=== PATIENT | female | born 1975 | race Caucasian/White ===

== ENCOUNTER 2016-06-11 14:43 | Emergency (ER) | payer BC, OTHER ==
[2016-06-11] MEDS ORDERED: IPRATROPIUM-ALBUTEROL 3 ML NEB INHALATION STA (15:51)
[2016-06-11] MEDS ORDERED: SODIUM CHLORIDE 0.9% 1,000 ML IV STA (15:51)
[2016-06-11] MEDS ORDERED: methylPREDNISolone SOD SUCCI 125 MG/2 ML VIAL IV STA (15:51)
--- NOTE | 2016-06-11 15:55 | ED ---
General Adult HPI - General Chief complaint: Upper Respiratory Infection Stated complaint: SOB/Cough Time Seen by Provider: 06/11/16 15:15 Source: patient, RN notes reviewed Mode of arrival: ambulatory Limitations: no limitations - History of Present Illness Initial comments: 41-year-old female presents emergency 5 chief complaint of cough and shortness of breath. Patient has a history of respiratory distress in the past following surgery. Patient states that anytime she gets sick she is informed to come to the ER. Patient states she started getting sick on . Patient states she's now having wheezing and increased shortness of breath. Patient denies any fever chills with this. Patient denies any cough cold runny nose. Patient states she was concerned due to her continued symptoms so she thought that she should be evaluated. Patient denies any recent fever, chills, chest pain, back pain, abdominal pain, nausea vomiting, numbness or tingling, dysuria or hematuria, constipation or diarrhea, headaches or visual changes, or any other current symptoms. - Related Data Home Medications Medication Instructions Recorded Confirmed Acetaminophen Tab [Tylenol Tab] 650 mg PO Q6H PRN 06/11/16 06/11/16 Phenylephrine/Acetamin/Doxylam 1 cap PO Q6HR PRN 06/11/16 06/11/16 [Vicks Dayquil-Nyquil Sinex Cap] Previous Rx's Medication Instructions Recorded Albuterol Inhaler [Ventolin Hfa 1 - 2 puff INHALATION Q4-6H PRN #1 06/11/16 Inhaler] inhaler Albuterol Nebulized [Ventolin 2.5 mg INHALATION Q4H #20 nebu 06/11/16 Nebulized] Amoxicillin/Potassium Clav 1 tab PO Q12HR #20 tab 06/11/16 [Augmentin 875-125 Tablet] Furosemide [Lasix] 20 mg PO DAILY #2 tab 06/11/16 predniSONE 50 mg PO DAILY #5 tab 06/11/16 Allergies Allergy/AdvReac Type Severity Reaction Status Date / Time latex Allergy Unknown Verified 06/11/16 15:27 aloe vera AdvReac Rash/Hives Verified 06/11/16 15:27 Review of Systems ROS Statement: Those systems with pertinent positive or pertinent negative responses have been documented in the HPI. ROS Other: All systems not noted in ROS Statement are negative. Past Medical History Past Medical History: Respiratory Disorder Additional Past Medical History / Comment(s): TACHYCARDIA. WAS ON VENT X 1 1/2 MOS. R/T UNKNOWN LUNG CONDITION, STATES ALVEOLI HEMORRHAGE. ACUTE RESP. FAILURE. WAS ON DIALYSIS X 2 MOS. History of Any Multi-Drug Resistant Organisms: C-DIFF, MRSA Date of last positivie culture/infection: 2012 MDRO Source:: HOSPITAL ACQUIRED/ UTI Past Surgical History: Uterine Ablation Additional Past Surgical History / Comment(s): D & C, ENDOMET. ABLATION. RIGHT FOOT ORIF Past Anesthesia/Blood Transfusion Reactions: No Reported Reaction Past Psychological History: Anxiety Smoking Status: Former smoker Past Alcohol Use History: Rare Past Drug Use History: None Reported General Exam - General Exam Comments Initial Comments: General: The patient is awake and alert, in no distress, and does not appear acutely ill. Eye: Pupils are equal, round and reactive to light, extra-ocular movements are intact; there is normal conjunctiva bilaterally. No signs of icterus. Ears, nose, mouth and throat: There are moist mucous membranes and no oral lesions. Neck: The neck is supple, there is no tenderness. Cardiovascular: There is a regular rate and rhythm. No murmur, rub or gallop is appreciated. Respiratory: Lungs are clear to auscultation, respirations are non-labored, breath sounds are equal. Expiratory wheeze, no stridor, rales, or rhonchi. Gastrointestinal: Soft, non-distended, non-tender abdomen without masses or organomegaly noted. There is no rebound or guarding present. No CVA tenderness. Bowel sounds are unremarkable. Back: There is no tenderness to palpation in the midline. There is no obvious deformity. No rashes noted. Musculoskeletal: Normal ROM, no tenderness, There is no pedal edema. There is no calf tenderness or swelling. Sensation intact. Pulses equal bilaterally 2+. Neurological: CN II-XII intact, There are no obvious motor or sensory deficits. Coordination appears grossly intact. Speech is normal. Skin: Skin is warm and dry and no rashes or lesions are noted. Psychiatric: Cooperative, appropriate mood & affect, normal judgment. Limitations: no limitations Course Vital Signs 06/11/16 06/11/16 06/11/16 14:53 16:09 16:12 Temperature 98.5 F Pulse Rate 102 H 100 93 Respiratory 20 18 Rate Blood Pressure 131/77 145/83 O2 Sat by Pulse 96 98 Oximetry 06/11/16 16:20 Temperature Pulse Rate 100 Respiratory Rate Blood Pressure O2 Sat by Pulse Oximetry - Reevaluation(s) Reevaluation #1: 06/11/16 17:37 At this time patient reevaluated and wheezing has improved. Patient states that she is feeling much better. On room air patient is around 9596% while in the room. This time we didn't say we could keep her here for continued evaluation and observation admission however she states she is ALLERGIC to home. She states that if she does start to feel where she will return to the emergency department. Medical Decision Making - Medical Decision Making 41-year-old female presents with cough and shortness of breath. Chest x-ray does show concern for possible pulmonary edema. Patient's BMP is negative. More likely to be due to viral-like causes will however start the patient on Lasix for 2 days to see if that helps also improve her symptoms along with steroids and antibiotics. We did discuss with her breathing treatment and inhaler for home. This patient is in agreement with plan and all questions have been answered. This will be discharged. - Lab Data Result diagrams: 06/11/16 16:15 06/11/16 16:15 Lab Results 06/11/16 06/11/16 06/11/16 Range/Units 16:00 16:15 16:15 WBC 8.4 (3.8-10.6) k/uL RBC 5.33 (3.80-5.40) m/uL Hgb 16.3 H (11.4-16.0) gm/dL Hct 51.1 H (34.0-46.0) % MCV 95.9 (80.0-100.0) fL MCH 30.5 (25.0-35.0) pg MCHC 31.8 (31.0-37.0) g/dL RDW 13.5 (11.5-15.5) % Plt Count 230 (150-450) k/uL Neutrophils % (Manual) 57.0 % Lymphocytes % (Manual) 22.0 % Monocytes % (Manual) 15.0 % Eosinophils % (Manual) 6.0 % Neutrophils # (Manual) 4.8 (1.3-7.7) k/uL Lymphocytes # (Manual) 1.8 (1.0-4.8) k/uL Monocytes # (Manual) 1.3 H (0-1.0) k/uL Eosinophils # (Manual) 0.5 (0-0.7) k/uL Nucleated RBCs 0 (0-0) /100 WBC Manual Slide Review Performed RBC Morphology Normal Sodium 135 L (137-145) mmol/L Potassium 4.6 (3.5-5.1) mmol/L Chloride 105 (98-107) mmol/L Carbon Dioxide 23 (22-30) mmol/L Anion Gap 7 mmol/L BUN 17 (7-17) mg/dL Creatinine 1.38 H (0.52-1.04) mg/dL Est GFR (MDRD) Af Amer 51 (>60 ml/min/1.73 sqM) Est GFR (MDRD) Non-Af 42 (>60 ml/min/1.73 sqM) Glucose 123 H (74-99) mg/dL Plasma Lactic Acid Luis Antonio (0.7-2.0) mmol/L Calcium 9.1 (8.4-10.2) mg/dL Total Bilirubin 0.6 (0.2-1.3) mg/dL AST 45 H (14-36) U/L ALT 62 H (9-52) U/L Alkaline Phosphatase 56 (38-126) U/L NT-Pro-B Natriuret Pep 20 pg/mL Total Protein 7.1 (6.3-8.2) g/dL Albumin 4.0 (3.5-5.0) g/dL 06/11/16 Range/Units 16:15 WBC (3.8-10.6) k/uL RBC (3.80-5.40) m/uL Hgb (11.4-16.0) gm/dL Hct (34.0-46.0) % MCV (80.0-100.0) fL MCH (25.0-35.0) pg MCHC (31.0-37.0) g/dL RDW (11.5-15.5) % Plt Count (150-450) k/uL Neutrophils % (Manual) % Lymphocytes % (Manual) % Monocytes % (Manual) % Eosinophils % (Manual) % Neutrophils # (Manual) (1.3-7.7) k/uL Lymphocytes # (Manual) (1.0-4.8) k/uL Monocytes # (Manual) (0-1.0) k/uL Eosinophils # (Manual) (0-0.7) k/uL Nucleated RBCs (0-0) /100 WBC Manual Slide Review RBC Morphology Sodium (137-145) mmol/L Potassium (3.5-5.1) mmol/L Chloride (98-107) mmol/L Carbon Dioxide (22-30) mmol/L Anion Gap mmol/L BUN (7-17) mg/dL Creatinine (0.52-1.04) mg/dL Est GFR (MDRD) Af Amer (>60 ml/min/1.73 sqM) Est GFR (MDRD) Non-Af (>60 ml/min/1.73 sqM) Glucose (74-99) mg/dL Plasma Lactic Acid Luis Antonio 1.5 (0.7-2.0) mmol/L Calcium (8.4-10.2) mg/dL Total Bilirubin (0.2-1.3) mg/dL AST (14-36) U/L ALT (9-52) U/L Alkaline Phosphatase (38-126) U/L NT-Pro-B Natriuret Pep pg/mL Total Protein (6.3-8.2) g/dL Albumin (3.5-5.0) g/dL - Radiology Data Radiology results: report reviewed, image reviewed Disposition Clinical Impression: Acute bronchitis, Pulmonary edema Disposition: HOME SELF-CARE Condition: Stable Instructions: Acute Bronchitis (ED) Additional Instructions: Please use medication as discussed. Please follow up with family doctor if symptoms have not improved over the next two days. Please return to the emergency room if your symptoms increase or worsen or for any other concerns. Prescriptions: Albuterol Inhaler [Ventolin Hfa Inhaler] 1 - 2 puff INHALATION Q4-6H PRN #1 inhaler PRN Reason: Cough Albuterol Nebulized [Ventolin Nebulized] 2.5 mg INHALATION Q4H #20 nebu Amoxicillin/Potassium Clav [Augmentin 875-125 Tablet] 1 tab PO Q12HR #20 tab Furosemide [Lasix] 20 mg PO DAILY #2 tab predniSONE 50 mg PO DAILY #5 tab Referrals: Jose So DO [Primary Care Provider] - 1-2 days
[2016-06-11 16:15] VITALS: RESP 18
--- NOTE | 2016-06-11 16:29 | XR ---
EXAMINATION TYPE: XR chest 2V DATE OF EXAM: 06/11/2016 4:24 PM COMPARISON: NONE INDICATION: Cough, dyspnea TECHNIQUE: Single frontal view of the chest is obtained. FINDINGS: The heart size is normal. The pulmonary vasculature is indistinct. There is diffuse increased alveolar infiltrate. This is improved from prior study. The patient has be en extubated and the nasogastric tube removed. IMPRESSION: 1. Improving pulmonary edema. Continued follow-up for residual is recommended.
[2016-06-11 16:33] LABS: Aty Lym Flag Slight; CH 31.6; CHCM 33.1; HCT 51.1 % (34.0-46.0); HDW 2.34; HGB 16.3 gm/dL (11.4-16.0); MCH 30.5 pg (25.0-35.0); MCHC 31.8 g/dL (31.0-37.0); MCV 95.9 fL (80.0-100.0); Mean Platelet Volume 7.3; RBC 5.33 m/uL (3.80-5.40); RDW 13.5 % (11.5-15.5); WBC 8.4 k/uL (3.8-10.6); WBC (Perox) 8.13
[2016-06-11 16:36] LABS: Calcium 9.1 mg/dL (8.4-10.2); Potassium 4.6 mmol/L (3.5-5.1); Total Bilirubin 0.6 mg/dL (0.2-1.3); Total Protein 7.1 g/dL (6.3-8.2)
[2016-06-11 16:38] LABS: Add Differential Manual Differential
[2016-06-11 16:45] LABS: Manual Review Performed; Nucleated Red Blood Cells 0 /100 WBC (0-0); RBC Morphology Normal; Total Cells Counted 100
[2016-06-11] MEDS ORDERED: ALBUTEROL NEBULIZED 2.5 MG/3 ML INHALATION STA (17:37)
[2016-06-11] MEDS ORDERED: FUROSEMIDE 20 MG TAB PO STA (17:40)
[2016-06-11 19:34] VITALS: BP 130/71; PULSE 110; TEMP 98.8
== END 2016-06-11 19:40 | disposition home or self-care (01) ==
LOC: EC 14:43
DX: J81.1 Chronic pulmonary edema (principal); J20.9 Acute bronchitis, unspecified; Z86.14 Personal history of Methicillin resistant Staphylococcus aureus infection; Z91.040 Latex allergy status; Z91.048 Other nonmedicinal substance allergy status
CPT/HCPCS: 99284; 96374; 96361; 36415; 94640 ×2; 83880; 80053; 83605; 85025; 87040; 71020; J2930; J0696

== ENCOUNTER 2016-07-22 01:50 | Emergency (ER) | payer OTHER ==
[2016-07-22] MEDS ORDERED: PROPARACAINE 0.5% OPHTH DROPS 15 ML BTL RIGHT EYE STA (03:03)
[2016-07-22] MEDS ORDERED: PROPARACAINE 0.5% OPHTH DROPS 15 ML BTL LEFT EYE STA (03:03)
[2016-07-22] MEDS ORDERED: PROPARACAINE 0.5% OPHTH DROPS 15 ML BTL ONE (03:07)
[2016-07-22] MEDS ORDERED: predniSONE 20 MG TAB PO STA (03:21)
--- NOTE | 2016-07-22 03:22 | ED ---
Eye Problem HPI - General Chief complaint: Eye Problems Stated complaint: Eye problem Time Seen by Provider: 07/22/16 02:53 Source: patient, RN notes reviewed Mode of arrival: ambulatory Limitations: no limitations - History of Present Illness Initial comments: patient is a 41-year-old female presents emergency room for evaluation of left eye redness and irritation. Patient states that she is a mild ALLERGY to cats. Patient states that she was holding her cat today and her left eye became itchy and irritated. Patient states she went to go scratch her eye became swollen and red. Patient states her eyes have becomes red in the past due to irritation from her cat. Patient states took a Benadryl and she is still having some swelling and erythema of her left eye. Patient states she's not sure she got a cat hair in her eye. Patient states she's having increased tearing in her left eye. Patient states she did try to irrigate her eye with eye drops with no relief of symptoms. Patient denies changes in vision. - Related Data Previous Rx's Medication Instructions Recorded Albuterol Inhaler [Ventolin Hfa 1 - 2 puff INHALATION Q4-6H PRN #1 06/11/16 Inhaler] inhaler Albuterol Nebulized [Ventolin 2.5 mg INHALATION Q4H #20 nebu 06/11/16 Nebulized] Allergies Allergy/AdvReac Type Severity Reaction Status Date / Time latex Allergy Unknown Verified 06/11/16 15:27 aloe vera AdvReac Rash/Hives Verified 06/11/16 15:27 Review of Systems ROS Statement: Those systems with pertinent positive or pertinent negative responses have been documented in the HPI. ROS Other: All systems not noted in ROS Statement are negative. Past Medical History Past Medical History: Respiratory Disorder Additional Past Medical History / Comment(s): TACHYCARDIA. WAS ON VENT X 1 1/2 MOS. R/T UNKNOWN LUNG CONDITION, STATES ALVEOLI HEMORRHAGE. ACUTE RESP. FAILURE. WAS ON DIALYSIS X 2 MOS. History of Any Multi-Drug Resistant Organisms: C-DIFF, MRSA Date of last positivie culture/infection: 2012 MDRO Source:: HOSPITAL ACQUIRED/ UTI Past Surgical History: Uterine Ablation Additional Past Surgical History / Comment(s): D & C, ENDOMET. ABLATION. RIGHT FOOT ORIF Past Anesthesia/Blood Transfusion Reactions: No Reported Reaction Past Psychological History: Anxiety Smoking Status: Former smoker Past Alcohol Use History: Rare Past Drug Use History: None Reported General Exam - General Exam Comments Initial Comments: sitting in exam room, no acute distress. Limitations: no limitations General appearance: alert, in no apparent distress Head exam: Present: atraumatic, normocephalic, normal inspection Expanded Eyelids: Swelling: Left Pupils: Regular, Round: Bilateral, Reactive: Bilateral Sclera/Conjunctival: Injection: Left ENT exam: Present: normal exam Neck exam: Present: normal inspection Respiratory exam: Absent: respiratory distress Extremities exam: Present: normal inspection Back exam: Present: normal inspection Neurological exam: Present: alert, oriented X3, CN II-XII intact, normal gait Psychiatric exam: Present: normal affect, normal mood Skin exam: Present: warm, dry, intact, normal color. Absent: rash Course Vital Signs 07/22/16 02:17 Temperature 98.6 F Pulse Rate 89 Respiratory 18 Rate Blood Pressure 173/94 O2 Sat by Pulse 97 Oximetry Medical Decision Making - Medical Decision Making patient is a 41-year-old female presents to the emergency room for evaluation left eye irritation. Patient's left eye was anesthetized with proparacaine drops and evaluated under Wood's lamp with fluorescein dye. No uptake noted. Does appear that patient had an ALLERGIC reaction from a piece of cat hair. Patient given prednisone advised to continue taking Benadryl as needed. Patient states she understands everything that was discussed with her. Return parameters discussed. Case discussed with Dr. Clayton. Disposition Clinical Impression: Allergic conjunctivitis Disposition: HOME SELF-CARE Condition: Good Instructions: Allergies (ED) Additional Instructions: Continue taking Benadryl as needed. Cold compresses. Please follow up with primary care provider in 1-2 days. If any new symptom arises or symptoms worsen , return to ER as soon as possible. Referrals: Jose So DO [Primary Care Provider] - 1-2 days Time of Disposition: 03:21
[2016-07-22 03:45] VITALS: BP 168/77; PULSE 84; RESP 20; TEMP 97.8
== END 2016-07-22 03:45 | disposition home or self-care (01) ==
LOC: EC 01:50
DX: H10.12 Acute atopic conjunctivitis, left eye (principal); Z87.891 Personal history of nicotine dependence; Z91.040 Latex allergy status; Z91.048 Other nonmedicinal substance allergy status
CPT/HCPCS: 99283; J7512

== ENCOUNTER → 2016-07-27 | Outpatient (CLI) | payer OTHER ==
--- NOTE | 2016-07-28 08:37 | US ---
EXAMINATION TYPE: US kidneys/renal and bladder DATE OF EXAM: 07/27/2016 4:13 PM COMPARISON: NONE CLINICAL HISTORY: 41-year-old female N17.9 Renal Failure. No symptoms, chronic kidney disease. TECHNIQUE: Multiple sonographic images of the kidneys and bladder were obtained. FINDINGS: DIE MAKER ELECTRONIC NOTES: *large body habitus EXAM MEASUREMENTS: Right Kidney: 9.8 x 3.9 x 4.0 cm Left Kidney: 10.1 x 4.4 x 4.8 cm There is no hydronephrosis on either side. No gross abnormality of the urine distended bladder. Both ureteral jets are visualized. IMPRESSION: No hydronephrosis.
== END | disposition home or self-care (01) ==
LOC: RADUSWWP 15:39
PROVIDERS: ATTEND Family Medicine
DX: N17.9 Acute kidney failure, unspecified (principal)
CPT/HCPCS: 76770

== ENCOUNTER → 2016-08-07 | Outpatient (CLI) | payer OTHER ==
--- NOTE | 2016-08-07 15:39 | CT ---
EXAMINATION TYPE: CT chest wo con DATE OF EXAM: 08/07/2016 COMPARISON: Previous study dated 02/16/2013 HISTORY: Pulmonary disease CT DLP: 561.8 mGycm Automated exposure control for dose reduction was used. FINDINGS: There are emphysematous changes throughout the lungs. There are increased interstitial johnna ings throughout the lungs. No definite parenchymal nodules are seen. No alveolar airspace disease is seen. There is no significant axillary, internal mammary, mediastinal or hilar adenopathy. There is no pleu ral fluid. There is a 9 mm pericardial effusion. The heart is not enlarged. Visualized intra-abdominal structures are unremarkable. IMPRESSION: 1. COPD. 2. DIFFUSE, SUBTLE INTERSTITIAL DISEASE. 3. SMALL PERICARDIAL EFFUSION.
--- NOTE | 2016-08-08 11:07 | ECHOF ---
Referral Reason:I27.0 Primary pulmonary hypertension MEASUREMENTS -------- HEIGHT: 152.4 cm WEIGHT: 103.9 kg BP: RVIDd: 2.3 cm (< 3.3) IVSd: 1.2 cm (0.6 - 1.1) LVIDd: 3.6 cm (3.9 - 5.3) LVPWd: 1.3 cm (0.6 - 1.1) IVSs: 1.3 cm LVIDs: 2.2 cm LVPWs: 1.7 cm Ao Diam: 2.7 cm (2.0 - 3.7) AV Cusp: 1.9 cm (1.5 - 2.6) LA Diam: 2.6 cm (2.7 - 3.8) MV EXCURSION: 12.039 mm (> 18.000) MV EF SLOPE: 128 mm/s (70 - 150) EPSS: 0.2 cm MV E Yash: 0.88 m/s MV DecT: 243 ms MV A Yash: 0.77 m/s MV E/A Ratio: 1.15 RAP: 5.00 mmHg RVSP: 9.27 mmHg FINDINGS -------- Sinus rhythm. This was a technically adequate study. There is mild concentric left ventricular hypertrophy. Overall left ventricular systolic function is normal with, an EF between 55 - 60 %. The right ventricle is normal in size and function. The left atrium is normal in size. The right atrium is normal in size. The aortic valve is trileaflet, and appears structurally normal. No aortic stenosis or regurgitation. The mitral valve leaflets are mildly thickened. There is trace mitral regurgitation. Trace tricuspid regurgitation present. The right ventricular systolic pressure, as measured by Doppler, is 9.27mmHg. The pulmonic valve was not well visualized. The aortic root size is normal. The pericardium is normal. CONCLUSIONS -------- 1. Sinus rhythm. 2. There is trace mitral regurgitation. 3. Trace tricuspid regurgitation present. 4. The right ventricular systolic pressure, as measured by Doppler, is 9.27mmHg. 5. The pulmonic valve was not well visualized. 6. The aortic root size is normal. 7. The pericardium is normal. 8. This was a technically adequate study. 9. There is mild concentric left ventricular hypertrophy. 10. Overall left ventricular systolic function is normal with, an EF between 55 - 60 %. 11. The right ventricle is normal in size and function. 12. The left atrium is normal in size. 13. The right atrium is normal in size. 14. The aortic valve is trileaflet, and appears structurally normal. No aortic stenosis or regurgitation. 15. The mitral valve leaflets are mildly thickened. AIRCRAFT COMMUNICATOR: Cameron Padilla RDCS
[2016-08-08 14:13] LABS: Alternaria alternata IgE <0.35 kU/L (<0.35); Asperg. fumagatus IgE <0.35 kU/L (<0.35); Asperg. fumagatus IgE Class CLASS 0; Birch(Com.Silvr) IgE Class CLASS 0; Cat Epith & Dander IgE Class CLASS I; Clad herbarum IgE <0.35 kU/L (<0.35); Clad herbarum IgE Class CLASS 0; Common Ragweed IgE Class CLASS 0; Dermato. Pteronyssinus Class CLASS II; Dermato. Pteronyssinus IgE 2.67 kU/L (<0.35); Dermato. farinae IgE 1.24 kU/L (<0.35); Dermato. farinae IgE Class CLASS II; Maple (Box Elder) IgE <0.35 kU/L (<0.35); Maple (Box Elder) IgE Class CLASS 0; Mountain Cedar IgE <0.35 kU/L (<0.35); Mountain Cedar IgE Class CLASS 0; Mouse Urine IgE Class CLASS 0; Mouse Urine Proteins,IgE <0.35 kU/L (<0.35); Mulberry IgE Class CLASS 0; Nettle IgE <0.35 kU/L (<0.35); Nettle IgE Class CLASS 0; Oak IgE <0.35 kU/L (<0.35); Penicillium notatum IgE Class CLASS 0; Rough Marshelder IgE <0.35 kU/L (<0.35); Rough Marshelder IgE Class CLASS 0; Timothy Grass IgE 0.99 kU/L (<0.35); Timothy Grass IgE Class CLASS II; White Ash IgE Class CLASS 0
[2016-08-14 21:40] LABS: Phoma ssp. IgG 2.4 mcg/mL (< 6.6); Saccaharomospora viridis Not detected (Not detected); Saccaharopoly. rectivirgula Not detected (Not detected)
== END | disposition home or self-care (01) ==
LOC: RADCTMAIN 14:26
PROVIDERS: ATTEND Internal Medicine Sleep Medicine
DX: J84.89 Other specified interstitial pulmonary diseases (principal); I08.1 Rheumatic disorders of both mitral and tricuspid valves; J44.9 Chronic obstructive pulmonary disease, unspecified; I31.3 Pericardial effusion (noninflammatory); B44.89 Other forms of aspergillosis
CPT/HCPCS: 36415; 71250; 82785; 86001; 86003; 86606; 86609; 93306

== ENCOUNTER 2016-08-15 21:26 | Emergency (ER) | payer OTHER ==
[2016-08-15] MEDS ORDERED: ACETAMINOPHEN TAB 325 MG TAB PO STA (21:41)
--- NOTE | 2016-08-15 22:05 | ED ---
General Adult HPI - General Chief complaint: Upper Respiratory Infection Stated complaint: SOB/Cough Time Seen by Provider: 08/15/16 21:40 Source: patient, family, RN notes reviewed Mode of arrival: ambulatory Limitations: no limitations - History of Present Illness Initial comments: 41-year-old female presenting for productive cough for the past day. Patient states significant pulmonary history in 2012 which required ECMO and extended intensive care unit stay. States since that time she's had some breathing issues. She recently started seeing Dr. Lopes, pulmonology. States she has had some fevers and chills associated since yesterday. She denies any current shortness of breath associated. She did use her inhaler nebulizers several times today. She denies any chest pain. - Related Data Home Medications Medication Instructions Recorded Confirmed Albuterol Inhaler [Ventolin Hfa 1 - 2 puff INHALATION RT-Q4H PRN 08/15/16 Inhaler] Albuterol Nebulized [Ventolin 2.5 mg INHALATION RT-Q4H PRN 08/15/16 08/15/16 Nebulized] Furosemide [Lasix] 20 mg PO ONCE PRN 08/15/16 08/15/16 Previous Rx's Medication Instructions Recorded Azithromycin 250 mg PO DAILY #4 tab 08/16/16 Codeine Phosphate/Guaifenesin 5 ml PO Q6HR PRN #100 ml 08/16/16 [Cheratussin AC Syrup] predniSONE 40 mg PO DAILY #10 tab 08/16/16 Allergies Allergy/AdvReac Type Severity Reaction Status Date / Time aloe vera Allergy Rash/Hives Verified 08/15/16 21:58 latex Allergy Unknown Verified 08/15/16 21:58 Review of Systems ROS Statement: Those systems with pertinent positive or pertinent negative responses have been documented in the HPI. ROS Other: All systems not noted in ROS Statement are negative. Past Medical History Past Medical History: Respiratory Disorder Additional Past Medical History / Comment(s): TACHYCARDIA. WAS ON VENT X 1 1/2 MOS. R/T UNKNOWN LUNG CONDITION, STATES ALVEOLI HEMORRHAGE. ACUTE RESP. FAILURE. WAS ON DIALYSIS X 2 MOS. History of Any Multi-Drug Resistant Organisms: C-DIFF, MRSA Date of last positivie culture/infection: 2012 MDRO Source:: HOSPITAL ACQUIRED/ UTI Past Surgical History: Uterine Ablation Additional Past Surgical History / Comment(s): D & C, ENDOMET. ABLATION. RIGHT FOOT ORIF Past Anesthesia/Blood Transfusion Reactions: No Reported Reaction Past Psychological History: Anxiety Smoking Status: Former smoker Past Alcohol Use History: Rare Past Drug Use History: None Reported General Exam - General Exam Comments Initial Comments: General: Awake and Alert. No acute distress. Does not appear acutely ill. Eyes: SIM, EOM intact. No nystagmus. No scleral icterus. HENT: Atraumatic, normocephalic. Mucous membranes moist. Trachea midline. Neck: The neck is supple, there is no tenderness or JVD. Cardiovascular: Regular rate and rhythm. No murmur, rub, or gallop is appreciated. Distal pulses intact. Respiratory: Lungs are clear to auscultation bilaterally. No wheezes, rales, rhonchi. No respiratory distress. Gastrointestinal: Soft, Nontender. No rebound or guarding. Non-distended. No masses or organomegaly noted. No CVA tenderness. Musculoskeletal: No tenderness. Normal ROM. No gross deformity. No strength deficits. Neurological: A&Ox3. CN II-XII grossly intact, There are no obvious motor or sensory deficits. Coordination appears grossly intact. Speech is normal. Skin: Skin is warm and dry and no rashes or lesions are noted. Psychiatric: Cooperative, appropriate mood & affect, normal judgment. Limitations: no limitations Course Vital Signs 08/15/16 08/15/16 08/15/16 21:34 22:36 23:31 Temperature 100.5 F H 99.2 F Pulse Rate 118 H 110 H 103 H Respiratory 20 22 18 Rate Blood Pressure 133/84 139/67 135/63 O2 Sat by Pulse 97 98 98 Oximetry 08/16/16 00:37 Temperature 98.3 F Pulse Rate 105 H Respiratory 18 Rate Blood Pressure 131/70 O2 Sat by Pulse 98 Oximetry EKG Findings - EKG Comments: EKG Findings:: EKG 22:03. Sinus rhythm. Rate 115. Normal axis. No STEMI. Nonspecific EKG. Medical Decision Making - Medical Decision Making 41-year-old female presenting for cough. Patient noted be febrile and tachycardic and initial evaluation. Consideration for sepsis. Patient with complex pulmonary history and prior hospitalization has been on ECMO due to this. Following up with Dr. Lopes, pulmonology. Lab work and imaging ordered. Prior CT imaging was reviewed. CXR without evidence of mild pulmonary edema Lab work was stable CBC. Stable BMP with stable CKD. Lactate negative. Influenza negative. Patient reevaluated and states she is feeling improved. Vital signs improved. Low suspicion of sepsis at this time. Updated on results and imaging. Discussed reassuring findings today. Discussed plan to start on antibiotics for possible community acquired pneumonia given her significant history and clinical symptoms consistent with CAP. Patient also started on steroids. Patient was offered admission for further observation and management, however patient would rather go home at this time. This appears appropriate at this time. Discussed close follow-up with PCP and Dr. Lopes. Discussed concerning signs symptoms for immediate return to the ED. Patient is agreeable with plan and discharge home. - Lab Data Result diagrams: 08/15/16 22:15 08/15/16 22:15 Lab Results 08/15/16 08/15/16 08/15/16 Range/Units 22:00 22:15 22:15 WBC 8.7 (3.8-10.6) k/uL RBC 5.18 (3.80-5.40) m/uL Hgb 16.1 H (11.4-16.0) gm/dL Hct 48.8 H (34.0-46.0) % MCV 94.2 (80.0-100.0) fL MCH 31.1 (25.0-35.0) pg MCHC 33.0 (31.0-37.0) g/dL RDW 13.4 (11.5-15.5) % Plt Count 257 (150-450) k/uL Neutrophils % (Manual) 54.0 % Band Neutrophils % 9.0 % Lymphocytes % (Manual) 21.0 % Monocytes % (Manual) 10.0 % Eosinophils % (Manual) 6.0 % Neutrophils # (Manual) 5.5 (1.3-7.7) k/uL Lymphocytes # (Manual) 1.8 (1.0-4.8) k/uL Monocytes # (Manual) 0.9 (0-1.0) k/uL Eosinophils # (Manual) 0.5 (0-0.7) k/uL Nucleated RBCs 0 (0-0) /100 WBC Manual Slide Review Performed Large Platelets Present Polychromasia Present Anisocytosis (manual) Present PT (9.0-12.0) sec INR (<1.1) APTT (22.0-30.0) sec Sodium 137 (137-145) mmol/L Potassium 4.4 (3.5-5.1) mmol/L Chloride 105 (98-107) mmol/L Carbon Dioxide 20 L (22-30) mmol/L Anion Gap 12 mmol/L BUN 12 (7-17) mg/dL Creatinine 1.50 H (0.52-1.04) mg/dL Est GFR (MDRD) Af Amer 46 (>60 ml/min/1.73 sqM) Est GFR (MDRD) Non-Af 38 (>60 ml/min/1.73 sqM) Glucose 93 (74-99) mg/dL Plasma Lactic Acid Luis Antonio (0.7-2.0) mmol/L Calcium 9.5 (8.4-10.2) mg/dL Total Bilirubin 0.4 (0.2-1.3) mg/dL AST 65 H (14-36) U/L ALT 73 H (9-52) U/L Alkaline Phosphatase 66 (38-126) U/L Total Protein 6.9 (6.3-8.2) g/dL Albumin 4.1 (3.5-5.0) g/dL Urine Color Colorless Urine Appearance Cloudy H (Clear) Urine pH 5.0 (5.0-8.0) Ur Specific [place] 1.002 (1.001-1.035) Urine Protein Negative (Negative) Urine Glucose (UA) Negative (Negative) Urine Ketones Negative (Negative) Urine Blood Negative (Negative) Urine Nitrite Negative (Negative) Urine Bilirubin Negative (Negative) Urine Urobilinogen <2.0 (<2.0) mg/dL Ur Leukocyte Esterase Negative (Negative) Urine RBC 1 (0-5) /hpf Urine WBC 1 (0-5) /hpf Ur Squamous Epith Cells 6 H (0-4) /hpf Amorphous Sediment Rare H (None) /hpf Urine Bacteria Rare H (None) /hpf Urine Mucus Rare H (None) /hpf Influenza Type A RNA (Not Detectd) Influenza Type B (PCR) (Not Detectd) 08/15/16 08/15/16 08/15/16 Range/Units 22:15 22:15 22:15 WBC (3.8-10.6) k/uL RBC (3.80-5.40) m/uL Hgb (11.4-16.0) gm/dL Hct (34.0-46.0) % MCV (80.0-100.0) fL MCH (25.0-35.0) pg MCHC (31.0-37.0) g/dL RDW (11.5-15.5) % Plt Count (150-450) k/uL Neutrophils % (Manual) % Band Neutrophils % % Lymphocytes % (Manual) % Monocytes % (Manual) % Eosinophils % (Manual) % Neutrophils # (Manual) (1.3-7.7) k/uL Lymphocytes # (Manual) (1.0-4.8) k/uL Monocytes # (Manual) (0-1.0) k/uL Eosinophils # (Manual) (0-0.7) k/uL Nucleated RBCs (0-0) /100 WBC Manual Slide Review Large Platelets Polychromasia Anisocytosis (manual) PT 11.2 (9.0-12.0) sec INR 1.1 (<1.1) APTT 27.1 (22.0-30.0) sec Sodium (137-145) mmol/L Potassium (3.5-5.1) mmol/L Chloride (98-107) mmol/L Carbon Dioxide (22-30) mmol/L Anion Gap mmol/L BUN (7-17) mg/dL Creatinine (0.52-1.04) mg/dL Est GFR (MDRD) Af Amer (>60 ml/min/1.73 sqM) Est GFR (MDRD) Non-Af (>60 ml/min/1.73 sqM) Glucose (74-99) mg/dL Plasma Lactic Acid Luis Antonio 1.8 (0.7-2.0) mmol/L Calcium (8.4-10.2) mg/dL Total Bilirubin (0.2-1.3) mg/dL AST (14-36) U/L ALT (9-52) U/L Alkaline Phosphatase (38-126) U/L Total Protein (6.3-8.2) g/dL Albumin (3.5-5.0) g/dL Urine Color Urine Appearance (Clear) Urine pH (5.0-8.0) Ur Specific [place] (1.001-1.035) Urine Protein (Negative) Urine Glucose (UA) (Negative) Urine Ketones (Negative) Urine Blood (Negative) Urine Nitrite (Negative) Urine Bilirubin (Negative) Urine Urobilinogen (<2.0) mg/dL Ur Leukocyte Esterase (Negative) Urine RBC (0-5) /hpf Urine WBC (0-5) /hpf Ur Squamous Epith Cells (0-4) /hpf Amorphous Sediment (None) /hpf Urine Bacteria (None) /hpf Urine Mucus (None) /hpf Influenza Type A RNA Not Detected (Not Detectd) Influenza Type B (PCR) Not Detected (Not Detectd) - EKG Data -: EKG Interpreted by Mi EKG shows normal: sinus rhythm Rate: tachycardia - Radiology Data Radiology results: report reviewed, image reviewed Disposition Clinical Impression: Cough, Pulmonary edema, Fever, COPD (chronic obstructive pulmonary disease) Disposition: HOME SELF-CARE Condition: Stable Instructions: COPD (Chronic Obstructive Pulmonary Disease) (ED), Community Acquired Pneumonia (ED), Acute Cough (ED) Prescriptions: Azithromycin 250 mg PO DAILY #4 tab Codeine Phosphate/Guaifenesin [Cheratussin AC Syrup] 5 ml PO Q6HR PRN #100 ml PRN Reason: Cough predniSONE 40 mg PO DAILY #10 tab Referrals: Jose So DO [Primary Care Provider] - 1-2 days Time of Disposition: 00:30
[2016-08-15 22:18] LABS: Amorphous Sediment,Urine Rare /hpf; Appearance,Urine Cloudy (Clear); Bacteria,Urine Rare /hpf; Bilirubin,Urine Negative (Negative); Glucose,Urine (UA) Negative (Negative); Ketones,Urine Negative (Negative); Leukocyte Esterase,Urine Negative (Negative); Mucus,Urine Rare /hpf; Nitrite,Urine Negative (Negative); Particle Count 5327; Protein,Urine Negative (Negative); RBC,Urine 1 /hpf (0-5); Specific Gravity,Urine 1.002 (1.001-1.035); Squamous Epithelial Cell,Urine 6 /hpf (0-4); UA Billing (MACRO vs. MICRO) MICRO; Urobilinogen,Urine <2.0 mg/dL (<2.0); WBC,Urine 1 /hpf (0-5)
--- NOTE | 2016-08-15 22:24 | XR ---
EXAM: XR Chest, 2 Views CLINICAL HISTORY: Reason: Fever TECHNIQUE: Frontal and lateral views of the chest. COMPARISON: 06/11/2016 FINDINGS: Lungs: Diffuse bilateral interstitial prominence is nonspecific and may be due to mild interstitial edema or chronic interstitial lung disease. No focal consolidation. Pleural space: Unremarkable. No pneumothorax. Heart: Unremarkable. No cardiomegaly. Mediastinum: Unremarkable. Bones/joints: No acute osseous abnormality. IMPRESSION: Diffuse bilateral interstitial prominence is nonspecific and may be due to mild interstitial edema or chronic interstitial lung disease. No focal consolidation.
[2016-08-15] MEDS: SODIUM CHLORIDE 0.9% 500 ML IV SCH ×5 (22:45→23:53)
[2016-08-15] MEDS ORDERED: BENZONATATE 100 MG CAP PO STA (22:57)
[2016-08-15 23:08] LABS: Aty Lym Flag Moderate; CH 31.9; HCT 48.8 % (34.0-46.0); HDW 2.41; HGB 16.1 gm/dL (11.4-16.0); MCH 31.1 pg (25.0-35.0); MCV 94.2 fL (80.0-100.0); Mean Platelet Volume 7.4; RBC 5.18 m/uL (3.80-5.40); RDW 13.4 % (11.5-15.5); WBC 8.7 k/uL (3.8-10.6); WBC (Perox) 8.38
[2016-08-15 23:09] LABS: Calcium 9.5 mg/dL (8.4-10.2); Potassium 4.4 mmol/L (3.5-5.1); Total Bilirubin 0.4 mg/dL (0.2-1.3); Total Protein 6.9 g/dL (6.3-8.2)
[2016-08-15 23:10] LABS: INR 1.1 (<1.1); Partial Thromboplastin Time 27.1 sec (22.0-30.0); Prothrombin Time 11.2 sec (9.0-12.0)
[2016-08-15] MEDS ORDERED: methylPREDNISolone SOD SUCCI 125 MG/2 ML VIAL IV STA (23:19)
[2016-08-15 23:33] VITALS: RESP 18
[2016-08-15 23:41] LABS: Add Differential Manual Differential
[2016-08-15 23:47] LABS: Nucleated Red Blood Cells 0 /100 WBC (0-0); Total Cells Counted 100
[2016-08-15 23:50] LABS: Polychromasia Present
[2016-08-15 23:52] LABS: Large Platelets Present; Manual Review Performed
[2016-08-16] MEDS ORDERED: AZITHROMYCIN 500 MG TAB PO STA (00:03)
[2016-08-16 00:40] VITALS: BP 131/70; PULSE 105; TEMP 98.3
== END 2016-08-16 01:13 | disposition home or self-care (01) ==
LOC: EC 21:26
DX: J44.9 Chronic obstructive pulmonary disease, unspecified (principal); Z87.891 Personal history of nicotine dependence; Z91.048 Other nonmedicinal substance allergy status; Z91.040 Latex allergy status
CPT/HCPCS: 99284; 96374; 96361 ×2; 36415; 93005; 80053; 83605; 85025; 85610; 85730; 81001; 87040; 87086; 87502; 71020; J2930; J0696

== ENCOUNTER 2016-08-24 23:41 | Inpatient (IN) | payer OTHER ==
[2016-08-24] MEDS ORDERED: RX INFO: IV CONTRAST WAS GIVEN 1 EACH MISC MISCELLANE PRN (23:58)
--- NOTE | 2016-08-25 00:08 | ED ---
General Adult HPI - General Source: patient, RN notes reviewed Mode of arrival: ambulatory Limitations: no limitations <Antonietta Marie - Last Filed: 08/25/16 02:34> <Landon Arroyo - Last Filed: 08/25/16 02:40> - General Chief complaint: Upper Respiratory Infection Stated complaint: coughing up blood Time Seen by Provider: 08/24/16 23:49 - History of Present Illness Initial comments: 41-year-old female presents to the emergency department with chief complaint of cough with coughing up blood clot today. Patient states she's had a cough for the past 2 weeks. Patient states that she was here 2 weeks ago and placed on azithromycine. FOllow up with video and sound recorder Patient states she went to her video and sound recorder and he put her on Augmentin for left otitis media. Patient states that today she noticed a little bit of pink in her constantly she was concerned. 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 Patient states that she does not feel like that she does not feel short of breath but she was concerned when she saw some blood with the cough so she thought that she should be seen. Patient denies any nausea vomiting with this. Patient states she has been taking Augmentin as prescribed. Patient states that she was concerned due to her symptoms so she thought that she should be evaluated. Patient denies any recent fever, chills, shortness of breath, chest pain, back pain, abdominal pain, nausea vomiting, numbness or tingling, dysuria or hematuria, constipation or diarrhea, headaches or visual changes, or any other current symptoms. (Antonietta Marie) - Related Data Home Medications Medication Instructions Recorded Confirmed Albuterol Inhaler [Ventolin Hfa 1 - 2 puff INHALATION RT-Q4H PRN 08/15/16 Inhaler] Albuterol Nebulized [Ventolin 2.5 mg INHALATION RT-Q4H PRN 08/15/16 08/24/16 Nebulized] Furosemide [Lasix] 20 mg PO ONCE PRN 08/15/16 08/24/16 Amoxic-Pot Clav 875-125Mg 1 tab PO BID 08/24/16 08/24/16 [Augmentin 875-125] Previous Rx's Medication Instructions Recorded Azithromycin 250 mg PO DAILY #4 tab 08/16/16 Codeine Phosphate/Guaifenesin 5 ml PO Q6HR PRN #100 ml 08/16/16 [Cheratussin AC Syrup] predniSONE 40 mg PO DAILY #10 tab 08/16/16 Allergies Allergy/AdvReac Type Severity Reaction Status Date / Time aloe vera Allergy Rash/Hives Verified 08/24/16 23:47 latex Allergy Unknown Verified 08/24/16 23:47 Review of Systems ROS Other: All systems not noted in ROS Statement are negative. <Antonietta Marie - Last Filed: 08/25/16 02:34> ROS Other: All systems not noted in ROS Statement are negative. <Landon Arroyo - Last Filed: 08/25/16 02:40> ROS Statement: Those systems with pertinent positive or pertinent negative responses have been documented in the HPI. Past Medical History Past Medical History: Respiratory Disorder Additional Past Medical History / Comment(s): TACHYCARDIA. WAS ON VENT X 1 1/2 MOS. R/T UNKNOWN LUNG CONDITION, STATES ALVEOLI HEMORRHAGE. ACUTE RESP. FAILURE. WAS ON DIALYSIS X 2 MOS. History of Any Multi-Drug Resistant Organisms: C-DIFF, MRSA Date of last positivie culture/infection: 2012 MDRO Source:: HOSPITAL ACQUIRED/ UTI Past Surgical History: Uterine Ablation Additional Past Surgical History / Comment(s): D & C, ENDOMET. ABLATION. RIGHT FOOT ORIF Past Anesthesia/Blood Transfusion Reactions: No Reported Reaction Past Psychological History: Anxiety Smoking Status: Former smoker Past Alcohol Use History: Rare Past Drug Use History: None Reported <Antonietta Marie - Last Filed: 08/25/16 02:34> General Exam Limitations: no limitations <Antonietta Marie - Last Filed: 08/25/16 02:34> <Landon Arroyo - Last Filed: 08/25/16 02:40> - General Exam Comments Initial Comments: General: The patient is awake and alert, in no distress, and does not appear acutely ill. Eye: Pupils are equal, round and reactive to light, extra-ocular movements are intact; there is normal conjunctiva bilaterally. No signs of icterus. Ears, nose, mouth and throat: There are moist mucous membranes. Neck: The neck is supple, there is no tenderness. Cardiovascular: There is a regular rate and rhythm. No murmur, rub or gallop is appreciated. Respiratory: Lungs are clear to auscultation, respirations are non-labored, breath sounds are equal. No wheezes, stridor, rales, or rhonchi. Gastrointestinal: Soft, non-distended, non-tender abdomen without masses or organomegaly noted. There is no rebound or guarding present. No CVA tenderness. Bowel sounds are unremarkable. Back: There is no tenderness to palpation in the midline. There is no obvious deformity. No rashes noted. Musculoskeletal: Normal ROM, no tenderness, There is no pedal edema. There is no calf tenderness or swelling. Sensation intact. Pulses equal bilaterally 2+. Neurological: CN II-XII intact, There are no obvious motor or sensory deficits. Coordination appears grossly intact. Speech is normal. Skin: Skin is warm and dry and no rashes or lesions are noted. Psychiatric: Cooperative, appropriate mood & affect, normal judgment. (Antonietta Marie) Course <Antonietta Marie - Last Filed: 08/25/16 02:34> <Landon Arroyo - Last Filed: 08/25/16 02:40> Vital Signs 08/24/16 23:44 Temperature 98.2 F Pulse Rate 111 H Respiratory 24 Rate Blood Pressure 155/93 O2 Sat by Pulse 94 L Oximetry - Reevaluation(s) Reevaluation #1: 08/25/16 02:39 I did personally do a [id number] evaluation the patient did discuss the findings with her. On examination lung sounds are clear. No palpable chest pain she did cough up bright red blood however. Of her history she will be admitted for a VQ scan and evaluation by her video and sound recorder. The elevated serum lactic acid is likely secondary to renal insufficiency she does have stage IIIB kidney disease. (Landon Arroyo) Medical Decision Making - Lab Data Result diagrams: 08/25/16 00:27 08/25/16 00:27 - Radiology Data Radiology results: report reviewed, image reviewed <Antonietta Marie - Last Filed: 08/25/16 02:34> - Lab Data Result diagrams: 08/25/16 00:27 08/25/16 00:27 <Landon Arroyo - Last Filed: 08/25/16 02:40> - Medical Decision Making 41-year-old female presents with chief complaint of cough. At this time lab work is reviewed. Elevated WBC count most likely due to right otitis media. Patient has an elevated lactic acid at this time due to renal insufficiency and dehydration. At this time no sign of sepsis. COncerning is the patient history of hemoptysis with hypoxi a at 94%. We will admit patient for VQ scan in the am and have Dr. Holley consulted for evaluation due to patient extensive lung history. Patient in agreement with plan and all questions have been answered. ( Antonietta Marie) - Lab Data Lab Results 08/25/16 08/25/16 08/25/16 Range/Units 00:27 00:27 00:27 WBC 14.5 H (3.8-10.6) k/uL RBC 4.95 (3.80-5.40) m/uL Hgb 16.2 H (11.4-16.0) gm/dL Hct 45.6 (34.0-46.0) % MCV 92.1 (80.0-100.0) fL MCH 32.7 (25.0-35.0) pg MCHC 35.5 (31.0-37.0) g/dL RDW 13.1 (11.5-15.5) % Plt Count 258 (150-450) k/uL Neutrophils % 69 % Lymphocytes % 21 % Monocytes % 5 % Eosinophils % 2 % Basophils % 1 % Neutrophils # 10.0 H (1.3-7.7) k/uL Lymphocytes # 3.0 (1.0-4.8) k/uL Monocytes # 0.7 (0-1.0) k/uL Eosinophils # 0.3 (0-0.7) k/uL Basophils # 0.1 (0-0.2) k/uL PT 10.5 (9.0-12.0) sec INR 1.0 (<1.1) APTT 24.7 (22.0-30.0) sec Sodium 135 L (137-145) mmol/L Potassium 4.1 (3.5-5.1) mmol/L Chloride 101 (98-107) mmol/L Carbon Dioxide 21 L (22-30) mmol/L Anion Gap 13 mmol/L BUN 21 H (7-17) mg/dL Creatinine 1.40 H (0.52-1.04) mg/dL Est GFR (MDRD) Af Amer 50 (>60 ml/min/1.73 sqM) Est GFR (MDRD) Non-Af 41 (>60 ml/min/1.73 sqM) Glucose 168 H (74-99) mg/dL Plasma Lactic Acid Luis Antonio (0.7-2.0) mmol/L Calcium 9.5 (8.4-10.2) mg/dL Total Bilirubin 0.4 (0.2-1.3) mg/dL AST 32 (14-36) U/L ALT 63 H (9-52) U/L Alkaline Phosphatase 63 (38-126) U/L Total Protein 6.7 (6.3-8.2) g/dL Albumin 4.0 (3.5-5.0) g/dL Amylase 87 (30-110) U/L Lipase 161 (23-300) U/L Urine Color Urine Appearance (Clear) Urine pH (5.0-8.0) Ur Specific [place] (1.001-1.035) Urine Protein (Negative) Urine Glucose (UA) (Negative) Urine Ketones (Negative) Urine Blood (Negative) Urine Nitrite (Negative) Urine Bilirubin (Negative) Urine Urobilinogen (<2.0) mg/dL Ur Leukocyte Esterase (Negative) Urine RBC (0-5) /hpf Urine WBC (0-5) /hpf Ur Squamous Epith Cells (0-4) /hpf 08/25/16 08/25/16 Range/Units 00:27 01:00 WBC (3.8-10.6) k/uL RBC (3.80-5.40) m/uL Hgb (11.4-16.0) gm/dL Hct (34.0-46.0) % MCV (80.0-100.0) fL MCH (25.0-35.0) pg MCHC (31.0-37.0) g/dL RDW (11.5-15.5) % Plt Count (150-450) k/uL Neutrophils % % Lymphocytes % % Monocytes % % Eosinophils % % Basophils % % Neutrophils # (1.3-7.7) k/uL Lymphocytes # (1.0-4.8) k/uL Monocytes # (0-1.0) k/uL Eosinophils # (0-0.7) k/uL Basophils # (0-0.2) k/uL PT (9.0-12.0) sec INR (<1.1) APTT (22.0-30.0) sec Sodium (137-145) mmol/L Potassium (3.5-5.1) mmol/L Chloride (98-107) mmol/L Carbon Dioxide (22-30) mmol/L Anion Gap mmol/L BUN (7-17) mg/dL Creatinine (0.52-1.04) mg/dL Est GFR (MDRD) Af Amer (>60 ml/min/1.73 sqM) Est GFR (MDRD) Non-Af (>60 ml/min/1.73 sqM) Glucose (74-99) mg/dL Plasma Lactic Acid Luis Antonio 2.3 H* (0.7-2.0) mmol/L Calcium (8.4-10.2) mg/dL Total Bilirubin (0.2-1.3) mg/dL AST (14-36) U/L ALT (9-52) U/L Alkaline Phosphatase (38-126) U/L Total Protein (6.3-8.2) g/dL Albumin (3.5-5.0) g/dL Amylase (30-110) U/L Lipase (23-300) U/L Urine Color Light Yellow Urine Appearance Clear (Clear) Urine pH 5.0 (5.0-8.0) Ur Specific [place] 1.004 (1.001-1.035) Urine Protein Negative (Negative) Urine Glucose (UA) Negative (Negative) Urine Ketones Negative (Negative) Urine Blood Negative (Negative) Urine Nitrite Negative (Negative) Urine Bilirubin Negative (Negative) Urine Urobilinogen <2.0 (<2.0) mg/dL Ur Leukocyte Esterase Small H (Negative) Urine RBC 2 (0-5) /hpf Urine WBC 2 (0-5) /hpf Ur Squamous Epith Cells 1 (0-4) /hpf Disposition Time of Disposition: 02:37 Decision Date: 08/25/16 Decision Time: 02:37 <Antonietta Marie - Last Filed: 08/25/16 02:34> <Landon Arroyo - Last Filed: 08/25/16 02:40> Clinical Impression: SOB (shortness of breath), Hemoptysis Disposition: ADMITTED IP TO THIS [facility] Condition: Stable Referrals: Jose So DO [Primary Care Provider] - 1-2 days
[2016-08-25 00:42] LABS: Appearance,Urine Clear (Clear); Bilirubin,Urine Negative (Negative); Glucose,Urine (UA) Negative (Negative); Ketones,Urine Negative (Negative); Leukocyte Esterase,Urine Small (Negative); Nitrite,Urine Negative (Negative); Particle Count 528; Protein,Urine Negative (Negative); RBC,Urine 2 /hpf (0-5); Specific Gravity,Urine 1.004 (1.001-1.035); Squamous Epithelial Cell,Urine 1 /hpf (0-4); UA Billing (MACRO vs. MICRO) MICRO; Urobilinogen,Urine <2.0 mg/dL (<2.0); WBC,Urine 2 /hpf (0-5)
[2016-08-25 00:48] LABS: Basophils # (A) 0.1 k/uL (0-0.2); Basophils % (A) 1 %; CH 31.2; Eosinophils # (A) 0.3 k/uL (0-0.7); Eosinophils % (A) 2 %; HCT 45.6 % (34.0-46.0); HDW 2.39; HGB 16.2 gm/dL (11.4-16.0); Luc % (Auto) 3; Lymphocytes % (A) 21 %; MCH 32.7 pg (25.0-35.0); MCHC 35.5 g/dL (31.0-37.0); MCV 92.1 fL (80.0-100.0); Mean Platelet Volume 6.9; Monocytes # (A) 0.7 k/uL (0-1.0); Monocytes % (A) 5 %; Neutrophils % (A) 69 %; RBC 4.95 m/uL (3.80-5.40); RDW 13.1 % (11.5-15.5); WBC 14.5 k/uL (3.8-10.6); WBC (Perox) 14.86
[2016-08-25 00:49] LABS: Partial Thromboplastin Time 24.7 sec (22.0-30.0); Prothrombin Time 10.5 sec (9.0-12.0)
[2016-08-25 00:51] LABS: Calcium 9.5 mg/dL (8.4-10.2); Potassium 4.1 mmol/L (3.5-5.1); Total Bilirubin 0.4 mg/dL (0.2-1.3); Total Protein 6.7 g/dL (6.3-8.2)
--- NOTE | 2016-08-25 01:49 | CT ---
EXAM: CT Chest Without Intravenous Contrast CLINICAL HISTORY: Reason: Hemoptysis TECHNIQUE: Axial computed tomography images of the chest without intravenous contrast. CTDI is 18.80 mGy and DLP is 788.20 mGy-cm. This CT exam was performed using one or more of the following dose reduction techniques: automated exposure control, adjustment of the mA and/or kV according to patient size, and/or use of iterative reconstruction technique. COMPARISON: 08/15/16 two-view chest, 08/07/[address] FINDINGS: Lungs: The lungs are stable including emphysema with slight prominence of the interstitial markings. No superimposed infiltrate. Pleural space: Unremarkable. No pneumothorax. No significant effusion. Heart: Trace pericardial fluid or thickening is stable. Bones/joints: Degenerative changes without acute fracture. Soft tissues: Stable. Vasculature: Unremarkable. No thoracic aortic aneurysm. Lymph nodes: Small nodes without evidence of adenopathy, stable. Upper abdomen: There is again hepatic steatosis and hepatomegaly. What appears to be a small calcified node adjacent to the mid duodenal level is stable. IMPRESSION: No significant change is seen since 08/07/16 CT including no new infiltrate or etiology of the patient's hemoptysis, as above.
[2016-08-25] MEDS ORDERED: HYDROcodone/APAP 5-325MG 1 EACH TAB PO PRN (02:37)
[2016-08-25] MEDS ORDERED: ACETAMINOPHEN TAB 325 MG TAB PO PRN (02:37)
[2016-08-25] MEDS ORDERED: ONDANSETRON 4 MG/2 ML VIAL IVP PRN (02:37)
[2016-08-25] MEDS ORDERED: NALOXONE 0.4 MG/ML 1 ML VIAL IV PRN (02:37)
[2016-08-25] MEDS ORDERED: FUROSEMIDE 20 MG TAB PO PRN (02:39)
[2016-08-25] MEDS ORDERED: ALBUTEROL INHALER 60 PUFF/8 GM INHALER INHALATION PRN (02:39)
[2016-08-25] MEDS ORDERED: guaiFENesin-Coden 100-10MG/5ML 10 ML CUP PO PRN (02:39)
[2016-08-25] MEDS ORDERED: SODIUM CHLORIDE 0.9% 1,000 ML IV STA (02:41)
[2016-08-25 03:59] VITALS: BMI 36.4
[2016-08-25] MEDS: SODIUM CHLORIDE 0.9% 1,000 ML IV SCH ×2 (05:43→12:51)
[2016-08-25] MEDS ORDERED: AMOXIC-POT CLAV 875-125MG 1 EACH TAB PO SCH (09:00)
[2016-08-25] MEDS ORDERED: predniSONE 20 MG TAB PO SCH (09:00)
[2016-08-25] MEDS: ALBUTEROL NEBULIZED 2.5 MG/3 ML INHALATION PRN ×3 (09:08→15:34)
--- NOTE | 2016-08-25 09:09 | NM ---
EXAMINATION TYPE: NM pul vent and perfuse DATE OF EXAM: 08/25/2016 COMPARISON: CT chest August 25, 2016 HISTORY: Shortness of breath rule out pulmonary embolism. TECHNIQUE: Utilizing inhalation of 75 mCi Tc 99m DTPA aerosol and intravenous injection of 5.5 mCi o f Tc 99m MAA, ventilation and perfusion images are acquired post injection in multiple projections. FINDINGS: Normal radiotracer distribution is noted in the lungs. There is no evidence of mismatched defects. IMPRESSION: Low probability for pulmonary embolism
--- NOTE | 2016-08-25 14:46 | CONS ---
DATE OF CONSULTATION: 08/25/2016. REASON FOR CONSULTATION: Hemoptysis. HISTORY OF PRESENTING ILLNESS: Ms. Santy Raya is a 41-year-old morbidly obese female in who came into the hospital with one day history of increasing cough, congestion and sputum production which is mixed with streaks of blood. With those problems, she presented to the Emergency Room Department where she was seen, evaluated, examined and has been admitted to the hospital. She has been evaluated by a V/Q scan and CT scan, results of that not available at this point in time. Overnight patient's hemoptysis improved now. She has more purulent sputum and shortness of breath. No streak of blood however, has been noted. Past medical history is significant for COPD, recent bronchitis, has been taking Zithromax, recent otitis media. History of ARDS, history of respiratory failure requiring ventilator support for ARDS. History of chronic renal failure at the same time require hemodialysis, history of C. difficile and MRSA and history of uterine ablation, D&C, right foot and open reduction internal fixation surgery. ALLERGIES: ALOE VERA AND LATEX. Medications at home include: 1. Lasix 20 mg daily. 2. Codeine phosphate guaifenesin, as needed. 3. Augmentin 875 b.i.d. 4. Albuterol nebulizer 4 times a day. 5. Ventolin HFA as needed. Current medications while in the hospital include: 1. Tylenol as needed. 2. [place]. 3. Ventolin. 4. Augmentin. 5. Lasix. 6. Guaifenesin. 7. Prednisone 40 mg daily. 8. Naloxone. 9. IV fluid normal saline. REVIEW OF SYSTEMS: Otherwise unremarkable and noncontributory. FAMILY HISTORY AND SOCIAL HISTORY: Otherwise unremarkable and noncontributory except as dictated above. On examination, most recent vitals include blood pressure 126/70, respiratory rate 18, pulse 79, temperature 98, saturation 94%. HEENT EXAMINATION: Atraumatic, normocephalic. Pharynx is clear. NECK: Supple without lymphadenopathy, jugular venous distention or carotid bruit. LUNGS: Bilateral good air entry is present without any significant rales, rhonchi, or rub. HEART: Regular rate and rhythm. S1 and S2 audible. ABDOMEN: Soft. No rebound or rigidity. EXTREMITIES: +1 peripheral pulses. NEUROLOGICAL EXAMINATION: Otherwise, awake and alert. CT scan of the chest reviewed and compared with the prior CT back August 07, 2016. No new infiltrates or significant etiology has been seen. VQ scan performed revealed low probability for PE. IMPRESSION: 1. Hemoptysis most likely related to acute bronchitis. 2. Chronic obstructive pulmonary disease. 3. Chronic persistent asthma, moderate to severe. 4. History of recent otitis media, left-sided. 5. Morbid obesity. 6. Prior history of respiratory failure. PLAN AND RECOMMENDATION: Continue steroids, antibiotics. Continue breathing treatments, supportive care. Given that hemoptysis has resolved, will monitor and observe. Also presented patient option with the endoscopy including bronchoscopy for which she has declined. I will monitor and observe closely. If remains stable, can be discharged later on today or tomorrow.
[2016-08-25] MEDS ORDERED: TEMAZEPAM 15 MG CAP PO PRN (15:47)
--- NOTE | 2016-08-25 16:08 | XR ---
EXAMINATION TYPE: XR chest 1V portable DATE OF EXAM: 08/25/2016 COMPARISON: Prior chest x-ray 08/15/2016 HISTORY: COPD, hemoptysis yesterday TECHNIQUE: Single frontal view of the chest is obtained. FINDINGS: There is no focal air space opacity, pleural effusion, or pneumothorax seen. The cardiac silhouette size is stable. The patient is rotated. The osseous structures are intact. IMPRESSION: No acute process. Emphysema and interstitial changes are stable.
[2016-08-25] MEDS: IPRATROPIUM-ALBUTEROL 3 ML NEB INHALATION SCH ×2 (16:42→19:07)
[2016-08-25] MEDS: LEVOFLOXACIN 500MG-D5W PMX 500 MG in DEXTROSE/WATER 1 100ML.BAG IVPB SCH (16:50)
--- NOTE | 2016-08-25 17:13 | HP ---
DATE OF ADMISSION: CHIEF COMPLAINT: Hemoptysis. HISTORY OF PRESENT ILLNESS: This 41-year-old woman with a past medical history of asthma, COPD, history of renal disorder, history of respiratory distress, tachycardia, history of pneumonia, history of MRSA, history of Clostridium difficile, history of PEG tube feeding, history of anxiety, being followed by Dr. So and Dr. Lopes in the outpatient setting previously had pulmonary alveolar hemorrhage according to her. The patient was apparently transferred to [facility]. The patient is intubated and mechanical ventilator. The patient also underwent apparently ECMO. The patient also had developed renal failure. The patient also had PEG tube subsequently. Currently, the patient had cough for the past several weeks and subsequently patient took antibiotics, but last night the patient had hemoptysis and episodes and patient came to [facility] and admitted for further evaluation and treatment. The patient had a CT scan of the chest which did not show any changes. A pulmonary perfusion imaging was also done, which showed low probability pulmonary embolism. There is no history of fever, rigors. No history of stewart, loss of consciousness, seizures. PAST MEDICAL HISTORY: History of asthma, COPD, history of renal disease, respiratory disorder, history of adult respiratory distress syndrome, pulmonary hemorrhage as mentioned earlier. MEDICATIONS: 1. Lasix 20 mg daily p.r.n. 2. Codeine q.6 p.r.n. 3. Augmentin 875 mg 1 p.o. b.i.d. 4. Albuterol nebulizer 2.5 q.4 p.r.n. 5. Ventolin HFA 1 to 2 q.4 p.r.n. ALLERGIES: WILSON AND LATEX. FAMILY HISTORY: History of diabetes the family. SOCIAL HISTORY: Previous history of smoking and occasional alcohol intake. REVIEW OF SYSTEMS: ENT: No diminished hearing. No diminished vision. CARDIOVASCULAR: No angina, palpitations. CONSTITUTIONAL: No cough. GI: No nausea. : No dysuria. NERVOUS SYSTEM: No numbness or weakness. ALLERGY/IMMUNOLOGY: No asthma or hayfever. MUSCULOSKELETAL: As mentioned earlier. HEMATOLOGY: As mentioned earlier. ENDOCRINE: No history of diabetes or hypothyroidism. CONSTITUTIONAL: As mentioned earlier. DERMATOLOGY: Negative. RHEUMATOLOGY: Negative. PSYCHIATRY: As mentioned earlier. PHYSICAL EXAMINATION: Alert and oriented x3. Pulse 102, blood pressure 164/76, respirations 18, temperature 97 degrees, pulse ox 98% on room air. HEENT: Conjunctivae normal. NECK: No jugular venous distention. CARDIOVASCULAR: S1 and S2, muffled. RESPIRATORY: Breath sounds diminished at the bases. A few scattered rhonchi and expiratory wheezing. No crackles. ABDOMEN: Soft, nontender. LEGS: No edema, no swelling. NERVOUS SYSTEM: No focal deficits. LABS: WBC 14.5, hemoglobin 16.2, sodium 135, creatinine is 1.4, plasma lactic acid 2.3. ASSESSMENT: 1. Chronic obstructive pulmonary disease, asthmatic acute exacerbation with acute purulent tracheobronchitis with hemoptysis, possibly. 2. Increased creatinine with chronic kidney disease stage III. 3. Hyponatremia. 4. Increased random blood sugar. 5. Increased plasma lactic acid. 6. Increased ALT. 7. Increased WBC. 8. 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 9. History of renal failure. 10. History of PEG tube. 11. Obesity with body mass index of 36.4. 12. Remote history of nicotine dependence. 13. History of tachycardia. 14. History of Clostridium difficile and methicillin-resistant Staphylococcus aureus. 15. History of anxiety, not otherwise specified and panic attacks. 16. FULL CODE. RECOMMENDATIONS AND DISCUSSION: This 41-year-old woman who presented with the multiple complex medical issues. Will monitor the patient closely. Continue the current medications and symptomatic treatment. I would recommend bronchodilators, steroids and empiric antibiotics. Otherwise, continue to monitor. The prognosis is guarded because of multiple complex medical issues. Further recommendations to follow. Pulmonary will be consulted. Monitor blood sugars closely. DVT prophylaxis. Further recommendations to follow. Copy of dictation forwarded to Dr. So who is the primary physician. [facility]
[2016-08-25 17:38] LABS: Glucose,Whole Blood 268 mg/dL (75-99)
[2016-08-25] MEDS: methylPREDNISolone SOD SUCCI 125 MG/2 ML VIAL IV SCH (17:51)
[2016-08-25] MEDS: INSULIN LISPRO (humaLOG) 300 UNIT/3 ML VIAL SQ SCH ×2 (17:52→21:38)
[2016-08-25 18:37] LABS: Hemoglobin A1C 6.3 % (4.2-6.1)
[2016-08-25] MEDS: SYMBICORT 160-4.5 MCG INHALER INHALATION SCH (19:07)
[2016-08-25 21:16] LABS: Glucose,Whole Blood 249 mg/dL (75-99)
[2016-08-25] MEDS: ALPRAZolam 0.25 MG TAB PO PRN (21:42)
[2016-08-26] MEDS: methylPREDNISolone SOD SUCCI 125 MG/2 ML VIAL IV SCH ×2 (00:36→06:07)
[2016-08-26 07:26] LABS: Glucose,Whole Blood 189 mg/dL (75-99)
[2016-08-26] MEDS: IPRATROPIUM-ALBUTEROL 3 ML NEB INHALATION SCH ×4 (07:28→19:42)
[2016-08-26] MEDS: SYMBICORT 160-4.5 MCG INHALER INHALATION SCH ×2 (07:28→19:42)
[2016-08-26] MEDS: PANTOPRAZOLE 40 MG TABLET PO SCH (08:08)
[2016-08-26] MEDS: INSULIN LISPRO (humaLOG) 300 UNIT/3 ML VIAL SQ SCH ×4 (08:08→20:08)
[2016-08-26 08:39] LABS: Basophils % (A) 0 %; CH 31.1; CHCM 32.2; Eosinophils % (A) 0 %; HCT 51.2 % (34.0-46.0); HGB 15.8 gm/dL (11.4-16.0); Luc % (Auto) 1; Lymphocytes # (A) 1.4 k/uL (1.0-4.8); Lymphocytes % (A) 6 %; MCH 30.1 pg (25.0-35.0); MCHC 30.9 g/dL (31.0-37.0); Mean Platelet Volume 6.9; Monocytes # (A) 0.8 k/uL (0-1.0); Monocytes % (A) 3 %; Neutrophils # (A) 21.9 k/uL (1.3-7.7); Neutrophils % (A) 90 %; RBC 5.26 m/uL (3.80-5.40); RDW 13.5 % (11.5-15.5); WBC 24.3 k/uL (3.8-10.6); WBC (Perox) 24.21
[2016-08-26 08:49] LABS: MCV 97.3 fL (80.0-100.0)
[2016-08-26 08:53] LABS: ALT 48 U/L (9-52); AST 21 U/L (14-36); Alkaline Phosphatase 67 U/L (38-126); Anion Gap 13 mmol/L; Blood Urea Nitrogen 18 mg/dL (7-17); Calcium 9.2 mg/dL (8.4-10.2); Carbon Dioxide 21 mmol/L (22-30); Chloride 102 mmol/L (98-107); Glucose 280 mg/dL (74-99); Non-African American GFR(MDRD) 53 (>60 ml/min/1.73 sqM); Potassium 5.1 mmol/L (3.5-5.1); Sodium 136 mmol/L (137-145); Total Bilirubin 0.7 mg/dL (0.2-1.3); Total Protein 6.9 g/dL (6.3-8.2)
[2016-08-26 11:29] LABS: Glucose,Whole Blood 363 mg/dL (75-99)
[2016-08-26] MEDS: ALPRAZolam 0.25 MG TAB PO PRN (12:31)
--- NOTE | 2016-08-26 13:42 | PN ---
The patient is a 41-year-old who came into hospital with cough, congestion, shortness of breath as well as hemoptysis. She has declined endoscopy. Her cough is slightly better. Shortness of breath is improved as well. No more hemoptysis has been seen. She gets short of breath on activity and exertion but however slightly better compared to last couple of days. Blood pressure is 130/70, respiratory rate 18, pulse 90, temperature 98, saturation 94%. HEENT EXAMINATION: Otherwise unremarkable. NECK: Supple. LUNGS: Good air entry bilaterally. Fine wheezing on forced expiration. HEART: Regular rate and rhythm. S1 and S2 audible. ABDOMEN: Soft. No rebound or rigidity. EXTREMITIES: +1 peripheral pulses. NEUROLOGICAL EXAMINATION: Otherwise, awake and alert. IMPRESSION: 1. Tracheobronchitis. 2. Acute chronic obstructive pulmonary disease exacerbation. 3. Hemoptysis likely related to above. 4. History of chronic persistent asthma of severe category. 5. Acute asthma exacerbation. PLAN: As above. Continue supportive care. Continue breathing treatments. Agree with discharge planning. Oral antibiotics and tapering steroids. Follow up in office.
[2016-08-26] MEDS: LEVOFLOXACIN 500MG-D5W PMX 500 MG in DEXTROSE/WATER 1 100ML.BAG IVPB SCH (16:12)
[2016-08-26] MEDS: methylPREDNISolone SOD SUCCI 40 MG/ML 1 ML VIAL IV SCH ×2 (16:23→23:27)
[2016-08-26 16:58] LABS: Glucose,Whole Blood 253 mg/dL (75-99)
[2016-08-26 20:11] LABS: Glucose,Whole Blood 267 mg/dL (75-99)
[2016-08-27] MEDS: ALPRAZolam 0.25 MG TAB PO PRN ×3 (01:13→22:11)
[2016-08-27 01:56] LABS: Glucose,Whole Blood 369 mg/dL (75-99)
[2016-08-27] MEDS: INSULIN LISPRO (humaLOG) 300 UNIT/3 ML VIAL SQ SCH ×5 (02:06→20:39)
[2016-08-27] MEDS: IPRATROPIUM-ALBUTEROL 3 ML NEB INHALATION SCH ×4 (07:04→21:48)
[2016-08-27] MEDS: SYMBICORT 160-4.5 MCG INHALER INHALATION SCH ×2 (07:05→21:48)
[2016-08-27 07:08] LABS: Glucose,Whole Blood 195 mg/dL (75-99)
[2016-08-27] MEDS: methylPREDNISolone SOD SUCCI 40 MG/ML 1 ML VIAL IV SCH (08:25)
[2016-08-27] MEDS: PANTOPRAZOLE 40 MG TABLET PO SCH (08:25)
[2016-08-27 08:44] LABS: Calcium 9.7 mg/dL (8.4-10.2)
--- NOTE | 2016-08-27 08:57 | PN ---
DATE OF SERVICE: 08/26/2016 This 41-year-old woman was admitted with hemoptysis, also has significant past medical history of hemorrhage, alveolar hemorrhagic syndrome, etiology undetermined. No chest pain, no palpitations. No fever. Patient still has some cough, but however no hemoptysis. On exam, alert and oriented x3. Pulse 114, blood pressure 130/70, respiration 18, temperature 98 degrees, pulse ox 94% on room air. HEENT: Conjunctivae normal. NECK: No jugular venous distention. CARDIOVASCULAR: S1 and S2, muffled. RESPIRATORY: Breath sounds diminished at the bases. A few scattered rhonchi and crackles. ABDOMEN: Soft, nontender. LEGS: No edema, no swelling. NERVOUS SYSTEM: No focal deficits. LABS: WBC 24.3, hemoglobin 15.8. Sodium 130, potassium 5.1, glucose 363 and 253. ASSESSMENT: 1. Chronic obstructive pulmonary disease, acute exacerbation, with acute purulent tracheobronchitis of hemoptysis possibly. 2. Increased creatinine with chronic kidney disease, stage III. 3. Hyponatremia. 4. Increased random blood sugar. 5. Increased plasma lactic acid, present on admission. 6. Increased ALT. 7. Increased WBC. 8. 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 9. History of renal failure. 10. History of PEG tube. 11. Obesity body mass index 36.4. 12. Remote history of nicotine dependence. 13. History of tachycardia. 14. History of Clostridium difficile and methicillin-resistant Staphylococcus aureus. 15. History of anxiety, not otherwise specified and panic attacks. 16. FULL CODE. RECOMMENDATIONS AND DISCUSSION: I recommend to continue the current medications, continue monitoring and symptomatic treatment. Taper the steroids. Repeat labs. Closely follow with Dr. Lopes. Creatinine is 1.3, which is stable. Further recommendations to follow.
[2016-08-27 09:20] LABS: Potassium 5.1 mmol/L (3.5-5.1)
[2016-08-27 09:46] LABS: Basophils # (A) 0.1 k/uL (0-0.2); Basophils % (A) 0 %; CH 31.4; CHCM 32.1; Eosinophils % (A) 0 %; HCT 50.1 % (34.0-46.0); HDW 2.17; HGB 15.9 gm/dL (11.4-16.0); Luc # (Auto) 0.61; Luc % (Auto) 2; Lymphocytes # (A) 1.5 k/uL (1.0-4.8); Lymphocytes % (A) 5 %; MCH 31.1 pg (25.0-35.0); MCHC 31.7 g/dL (31.0-37.0); MCV 98.3 fL (80.0-100.0); Mean Platelet Volume 7.7; Monocytes # (A) 1.4 k/uL (0-1.0); Monocytes % (A) 4 %; Neutrophils # (A) 27.8 k/uL (1.3-7.7); Neutrophils % (A) 89 %; RBC 5.09 m/uL (3.80-5.40); RDW 13.5 % (11.5-15.5); WBC (Perox) 29.65
[2016-08-27 10:29] LABS: WBC 31.3 k/uL (3.8-10.6)
[2016-08-27 11:19] LABS: Glucose,Whole Blood 247 mg/dL (75-99)
[2016-08-27] MEDS: predniSONE 20 MG TAB PO SCH (11:41)
[2016-08-27 11:53] LABS: Manual Review Performed
--- NOTE | 2016-08-27 14:52 | PN ---
DATE OF SERVICE: 08/27/2016 She has been hemodynamically stable. She has no hemoptysis. On physical examination, her vitals are stable. She is afebrile her chest reveals prolonged expiration. No wheeze. Cardiovascular system reveals S1 and S2. ABDOMEN: Soft. There is no edema. IMPRESSION: Hemoptysis secondary to tracheobronchitis or asthma with chronic obstructive pulmonary disease with acute exacerbation. Continue her on Levaquin, Symbicort, prednisone, prednisone, may need to be tapered slowly. Depending on how she does, further changes to her care may need to be made.
[2016-08-27] MEDS: LEVOFLOXACIN 500MG-D5W PMX 500 MG in DEXTROSE/WATER 1 100ML.BAG IVPB SCH (16:59)
[2016-08-27 17:10] LABS: Glucose,Whole Blood 335 mg/dL (75-99)
[2016-08-27 19:58] LABS: Glucose,Whole Blood 252 mg/dL (75-99)
[2016-08-28] MEDS: INSULIN LISPRO (humaLOG) 300 UNIT/3 ML VIAL SQ SCH ×3 (03:24→13:24)
[2016-08-28 03:43] LABS: Glucose,Whole Blood 223 mg/dL (75-99)
--- NOTE | 2016-08-28 05:58 | PN ---
DATE OF SERVICE: 08/27/2016 This 41-year-old woman who was admitted with COPD acute exacerbation as well as acute purulent tracheobronchitis with hemoptysis has been closely monitored. The patient also has pulmonary alveolar hemorrhagic syndrome previously. No chest pain or palpitation. No fever. On exam, alert and oriented x3. Pulse is 105, blood pressure 158/95, respirations 18, temperature 97.9, pulse ox 96% on room air. HEENT: Conjunctivae normal. NECK: No jugular venous distention. CARDIOVASCULAR: S1 and S2, muffled. RESPIRATORY: Breath sounds diminished at the bases. Bilateral scattered rhonchi and crackles. Expiratory wheezing. ABDOMEN: Soft, nontender. LEGS: No edema, no swelling. NERVOUS SYSTEM: No focal deficits. LABS: WBC 31.3 and creatinine is 1.36. ASSESSMENT: 1. Chronic obstructive pulmonary disease, acute exacerbation with acute purulent tracheobronchitis with possible hemoptysis. 2. Increased creatinine with chronic kidney disease, stage III. 3. Hyponatremia. 4. Increased random blood sugar. 5. Increased plasma lactic acid, present on admission. 6. Increased ALT. 7. Increased WBC. 8. History of pulmonary alveolar hemorrhage and ARDS with prolonged respiratory failure with ECMO previously. 9. History of renal failure. 10. History of PEG tube. 11. History of obesity, body mass index of 36.4. 12. Remote history of nicotine dependence. 13. History of tachycardia. 14. History of Clostridium difficile colitis and methicillin-resistant Staphylococcus aureus. 15. History of anxiety, not otherwise specified and panic attacks. 16. FULL CODE. RECOMMENDATIONS AND DISCUSSION: Recommend to continue current medications. Continue with tapering dose of steroids. Continue with empiric antibiotics and bronchodilators. Closely follow. Further recommendations to follow.
[2016-08-28 07:09] LABS: Calcium 9.1 mg/dL (8.4-10.2); Potassium 4.7 mmol/L (3.5-5.1)
[2016-08-28 07:18] LABS: Glucose,Whole Blood 125 mg/dL (75-99)
[2016-08-28] MEDS: IPRATROPIUM-ALBUTEROL 3 ML NEB INHALATION SCH ×2 (07:38→11:22)
[2016-08-28] MEDS: SYMBICORT 160-4.5 MCG INHALER INHALATION SCH (07:39)
[2016-08-28 07:41] VITALS: BP 125/85; RESP 16; TEMP 96.8
[2016-08-28 07:51] LABS: CH 31.2; CHCM 32.6; HDW 2.21; HGB 14.4 gm/dL (11.4-16.0); MCH 31.6 pg (25.0-35.0); MCHC 32.9 g/dL (31.0-37.0); MCV 96.1 fL (80.0-100.0); Mean Platelet Volume 7.6; RBC 4.57 m/uL (3.80-5.40); RDW 13.5 % (11.5-15.5); WBC 24.5 k/uL (3.8-10.6); WBC (Perox) 25.42
[2016-08-28] MEDS: PANTOPRAZOLE 40 MG TABLET PO SCH (08:42)
[2016-08-28] MEDS: predniSONE 20 MG TAB PO SCH (08:42)
--- NOTE | 2016-08-28 10:11 | P.PN ---
Subjective This is a 41-year-old female patient being seen, examined and evaluated today on the fifth floor. This patient came into the hospital with increasing in cough congestion and sputum production which had streaks of blood in it. Patient was admitted with shortness of breath and hemoptysis. This patient does have a history of our and respiratory failure requiring mechanical ventilation in the past. Objective - Vital Signs Vital signs: Vital Signs Temp 96.8 F L 08/28/16 07:00 Pulse 96 08/28/16 07:53 Resp 16 08/28/16 07:00 BP 125/85 08/28/16 07:00 Pulse Ox 96 08/28/16 07:00 Intake & Output 08/27/16 08/28/16 08/28/16 18:59 06:59 18:59 Intake Total 700 990 Balance 700 990 Weight 87.5 kg Intake: Intake, IV Titration 100 Amount Levofloxacin 500Mg-D5w 100 Pmx 500 mg In Dextrose/ Water 1 100ml.bag @ 100 mls/hr IVPB Q24H [facility] Rx#: [id number] Oral 600 990 Other: Voiding Method Toilet Toilet Toilet # Voids 4 1 - Labs CBC & Chem 7: 08/28/16 06:37 08/28/16 06:37 Labs: Abnormal Lab Results - Last 24 Hours (Table) 08/27/16 08/27/16 08/27/16 Range/Units 07:40 11:17 17:08 WBC 31.3 H* (3.8-10.6) k/uL Hct 50.1 H (34.0-46.0) % Neutrophils # 27.8 H (1.3-7.7) k/uL Monocytes # 1.4 H (0-1.0) k/uL BUN (7-17) mg/dL Creatinine (0.52-1.04) mg/dL Glucose (74-99) mg/dL POC Glucose (mg/dL) 247 H 335 H (75-99) mg/dL 08/27/16 08/28/16 08/28/16 Range/Units 19:57 03:23 06:37 WBC 24.5 H (3.8-10.6) k/uL Hct (34.0-46.0) % Neutrophils # (1.3-7.7) k/uL Monocytes # (0-1.0) k/uL BUN (7-17) mg/dL Creatinine (0.52-1.04) mg/dL Glucose (74-99) mg/dL POC Glucose (mg/dL) 252 H 223 H (75-99) mg/dL 08/28/16 08/28/16 Range/Units 06:37 07:00 WBC (3.8-10.6) k/uL Hct (34.0-46.0) % Neutrophils # (1.3-7.7) k/uL Monocytes # (0-1.0) k/uL BUN 35 H (7-17) mg/dL Creatinine 1.45 H (0.52-1.04) mg/dL Glucose 135 H (74-99) mg/dL POC Glucose (mg/dL) 125 H (75-99) mg/dL Microbiology - Last 24 Hours (Table) 08/25/16 01:00 Blood Culture - Preliminary Blood No Growth after 72 hours Assessment and Plan Plan: Assessment Acute tracheobronchitis Hemoptysis related to above Chronic obstructive pulmonary disease Chronic persistent asthma, moderate to severe Recent history of otitis media left-sided Morbid obesity Prior history of respiratory failure requiring mechanical ventilation Plan Patient could be discharged from pulmonary standpoint in the near future. Patient is already scheduled for follow-up appointment in the outpatient setting. Medications have been reviewed and will be continued as ordered. Continue with steroids and antibiotics. Patient does not want a bronchoscopy at this time. Continue with pulmonary hygiene, coughing and deep breathing exercises, and supportive care. Supplemental oxygen to maintain oxygen saturations of 92% or better. Continue nebulizer treatments. GI and DVT prophylaxis. We will continue to monitor labs/results and adjust treatment as necessary. Further recommendations pending. I performed an examination of the patient and discussed their management with the nurse practitioner. I have reviewed the nurse practitioner's note and agree with the documented findings and plan of care.
[2016-08-28] MEDS: ALPRAZolam 0.25 MG TAB PO PRN (10:41)
[2016-08-28 11:19] LABS: Add Differential Manual Differential
[2016-08-28 11:21] LABS: Nucleated Red Blood Cells 0 /100 WBC (0-0); Total Cells Counted 100
[2016-08-28 11:22] LABS: Toxic Granulation Present
[2016-08-28 11:35] VITALS: PULSE 100
[2016-08-28 12:05] LABS: Glucose,Whole Blood 174 mg/dL (75-99)
[2016-08-28] MEDS ORDERED: LEVOFLOXACIN 250 MG TAB PO SCH (16:00)
== END 2016-08-28 14:45 | disposition home or self-care (01) | DRG 191 ==
LOC: EC 23:41 → 5MS5E 08-25 02:38 → OBSVTOIN 08-27 16:07
PROVIDERS: ADMIT Internal Medicine; ATTEND Internal Medicine
DX: J44.0 Chronic obstructive pulmonary disease with (acute) lower respiratory infection (principal); E87.1 Hypo-osmolality and hyponatremia; R04.2 Hemoptysis; J45.51 Severe persistent asthma with (acute) exacerbation; J20.9 Acute bronchitis, unspecified; N18.3 Chronic kidney disease, stage 3 (moderate); E66.01 Morbid (severe) obesity due to excess calories; J44.1 Chronic obstructive pulmonary disease with (acute) exacerbation; E86.0 Dehydration; F41.0 Panic disorder [episodic paroxysmal anxiety]; F41.9 Anxiety disorder, unspecified; H66.92 Otitis media, unspecified, left ear; Z68.36 Body mass index [BMI] 36.0-36.9, adult; Z87.891 Personal history of nicotine dependence; Z87.01 Personal history of pneumonia (recurrent); Z86.14 Personal history of Methicillin resistant Staphylococcus aureus infection; Z79.899 Other long term (current) drug therapy; Z91.040 Latex allergy status
CPT/HCPCS: 36415; 71010; 71250; 78582; 80048; 80053; 81001; 82150; 83036; 83605; 83690; 85025; 85610; 85730; 87040; 87086; 94640; 96360; 99285

== ENCOUNTER → 2016-09-01 | Outpatient (CLI) | payer OTHER ==
[2016-09-01 12:59] LABS: Basophils # (A) 0.1 k/uL (0-0.2); Basophils % (A) 0 %; CH 31.2; CHCM 33.5; Eosinophils # (A) 0.1 k/uL (0-0.7); Eosinophils % (A) 1 %; HCT 47.4 % (34.0-46.0); HDW 2.25; HGB 16.1 gm/dL (11.4-16.0); Luc # (Auto) 0.42; Luc % (Auto) 2; Lymphocytes # (A) 2.4 k/uL (1.0-4.8); Lymphocytes % (A) 10 %; MCH 31.7 pg (25.0-35.0); MCHC 33.9 g/dL (31.0-37.0); MCV 93.5 fL (80.0-100.0); Mean Platelet Volume 7.4; Monocytes # (A) 1.1 k/uL (0-1.0); Monocytes % (A) 5 %; Neutrophils % (A) 82 %; RBC 5.07 m/uL (3.80-5.40); RDW 13.2 % (11.5-15.5); WBC 23.1 k/uL (3.8-10.6); WBC (Perox) 21.84
[2016-09-01 13:23] LABS: Calcium 9.8 mg/dL (8.4-10.2); Potassium 4.6 mmol/L (3.5-5.1)
== END | disposition home or self-care (01) ==
LOC: LABWHC1 12:17
PROVIDERS: ATTEND Nurse Practitioner
DX: J44.9 Chronic obstructive pulmonary disease, unspecified (principal); N19 Unspecified kidney failure
CPT/HCPCS: 36415; 80048; 85025

== ENCOUNTER → 2016-09-29 | Outpatient (CLI) | payer OTHER ==
[2016-09-29 17:09] LABS: Basophils # (A) 0.1 k/uL (0-0.2); Basophils % (A) 1 %; CH 31.2; CHCM 33.8; Eosinophils # (A) 0.1 k/uL (0-0.7); Eosinophils % (A) 1 %; HCT 48.6 % (34.0-46.0); HDW 2.58; HGB 16.5 gm/dL (11.4-16.0); Luc # (Auto) 0.49; Luc % (Auto) 5; Lymphocytes # (A) 2.8 k/uL (1.0-4.8); Lymphocytes % (A) 26 %; MCH 31.5 pg (25.0-35.0); MCV 92.6 fL (80.0-100.0); Mean Platelet Volume 7.3; Monocytes # (A) 0.6 k/uL (0-1.0); Monocytes % (A) 6 %; Neutrophils # (A) 6.8 k/uL (1.3-7.7); Neutrophils % (A) 62 %; RBC 5.25 m/uL (3.80-5.40); RDW 12.5 % (11.5-15.5); WBC 10.9 k/uL (3.8-10.6); WBC (Perox) 10.78
[2016-09-29 17:19] LABS: Calcium 9.5 mg/dL (8.4-10.2); Magnesium 1.9 mg/dL (1.6-2.3); Phosphorous 2.9 mg/dL (2.5-4.5); Total Bilirubin 0.6 mg/dL (0.2-1.3); Uric Acid 7.1 mg/dL (3.7-7.4)
[2016-09-29 17:25] LABS: Appearance,Urine Cloudy (Clear); Bacteria,Urine Moderate /hpf; Bilirubin,Urine Negative (Negative); Glucose,Urine (UA) Negative (Negative); Ketones,Urine Negative (Negative); Leukocyte Esterase,Urine Large (Negative); Mucus,Urine Rare /hpf; Nitrite,Urine Negative (Negative); Particle Count 9555; Protein,Urine Trace (Negative); RBC,Urine 4 /hpf (0-5); Specific Gravity,Urine 1.009 (1.001-1.035); Squamous Epithelial Cell,Urine 4 /hpf (0-4); UA Billing (MACRO vs. MICRO) MICRO; Urobilinogen,Urine <2.0 mg/dL (<2.0); WBC,Urine 24 /hpf (0-5)
[2016-09-29 17:53] LABS: Potassium 5.2 mmol/L (3.5-5.1)
== END | disposition home or self-care (01) ==
LOC: LABWHC1 15:39
PROVIDERS: ATTEND Internal Medicine Nephrology
DX: J44.9 Chronic obstructive pulmonary disease, unspecified (principal); E66.01 Morbid (severe) obesity due to excess calories; D63.1 Anemia in chronic kidney disease; N18.3 Chronic kidney disease, stage 3 (moderate); E55.9 Vitamin D deficiency, unspecified; E21.3 Hyperparathyroidism, unspecified; M10.9 Gout, unspecified; N39.0 Urinary tract infection, site not specified
CPT/HCPCS: 36415; 80053; 80061; 81001; 82306; 82728; 83036; 83540; 83550; 83735; 83970; 84100; 84165; 84439; 84443; 84550; 85025; 86335

== ENCOUNTER → 2017-01-12 | Outpatient (CLI) | payer OTHER ==
[2017-01-12 17:29] LABS: Basophils # (A) 0.1 k/uL (0-0.2); Basophils % (A) 0 %; CH 29.8; CHCM 32.1; Eosinophils # (A) 0.2 k/uL (0-0.7); Eosinophils % (A) 2 %; HCT 51.6 % (34.0-46.0); HGB 16.4 gm/dL (11.4-16.0); Luc # (Auto) 0.32; Luc % (Auto) 3; Lymphocytes # (A) 2.7 k/uL (1.0-4.8); Lymphocytes % (A) 23 %; MCH 29.6 pg (25.0-35.0); MCHC 31.7 g/dL (31.0-37.0); MCV 93.4 fL (80.0-100.0); Mean Platelet Volume 7.5; Monocytes # (A) 0.4 k/uL (0-1.0); Monocytes % (A) 4 %; Neutrophils % (A) 68 %; RBC 5.53 m/uL (3.80-5.40); RDW 13.6 % (11.5-15.5); WBC 11.7 k/uL (3.8-10.6); WBC (Perox) 11.29
[2017-01-12 17:38] LABS: Calcium 9.6 mg/dL (8.4-10.2); Potassium 4.8 mmol/L (3.5-5.1)
[2017-01-12 17:39] LABS: Appearance,Urine Cloudy (Clear); Bacteria,Urine Rare /hpf; Bilirubin,Urine Negative (Negative); Glucose,Urine (UA) Negative (Negative); Ketones,Urine Negative (Negative); Leukocyte Esterase,Urine Small (Negative); Mucus,Urine Rare /hpf; Nitrite,Urine Negative (Negative); Particle Count 12901; Protein,Urine Negative (Negative); RBC,Urine 1 /hpf (0-5); Specific Gravity,Urine 1.011 (1.001-1.035); Squamous Epithelial Cell,Urine 24 /hpf (0-4); UA Billing (MACRO vs. MICRO) MICRO; Urobilinogen,Urine <2.0 mg/dL (<2.0); WBC,Urine 7 /hpf (0-5)
[2017-01-13 00:58] LABS: Iron Saturation 29.15 (12.00-45.00)
== END | disposition home or self-care (01) ==
LOC: LABWHC1 17:14
PROVIDERS: ATTEND Nurse Practitioner Family
DX: E55.9 Vitamin D deficiency, unspecified (principal); D63.1 Anemia in chronic kidney disease; N18.3 Chronic kidney disease, stage 3 (moderate); N39.0 Urinary tract infection, site not specified; R80.9 Proteinuria, unspecified
CPT/HCPCS: 36415; 80048; 81001; 82306; 82570; 82728; 83540; 83550; 83970; 84156; 85025

== ENCOUNTER 2018-04-07 11:46 | Emergency (ER) | payer BC, OTHER ==
[2018-04-07 11:56] VITALS: BP 169/92; PULSE 88; RESP 18
[2018-04-07] MEDS ORDERED: BUPIVACAIN-EPI 0.5%-1:200,000 30 ML VIAL SQ STA (12:15)
[2018-04-07] MEDS ORDERED: BUPIVACAIN-EPI 0.25%-1:200,000 30 ML VIAL SQ STA ×2 (12:21→12:35)
--- NOTE | 2018-04-07 12:24 | ED ---
ENT HPI - General Chief complaint: Dental/Oral Stated complaint: Dental pain Time Seen by Provider: 04/07/18 11:58 Source: patient, RN notes reviewed Mode of arrival: ambulatory Limitations: no limitations - History of Present Illness Initial comments: 43-year-old female sent emergency Department chief complaint of right-sided upper dental pain. Patient states started after chewing on a chip.. States it felt like a chipped her tooth cracked. Patient states that the pain is diffuse she did try some Tylenol no relief. She cannot take any anti-inflammatories secondary to kidney disease. Patient reports no fevers or chills. Patient did try to sleep and use cold water with no relief. - Related Data Home Medications Medication Instructions Recorded Confirmed Acetaminophen [Tylenol Extra 500 mg PO Q6H PRN 04/07/18 04/07/18 Strength] Previous Rx's Medication Instructions Recorded Penicillin V Potassium [Pen Vee K] 500 mg PO QID #40 tablet 04/07/18 Allergies Allergy/AdvReac Type Severity Reaction Status Date / Time aloe vera Allergy Rash/Hives Verified 04/07/18 12:27 latex Allergy Unknown Verified 04/07/18 12:27 Review of Systems ROS Statement: Those systems with pertinent positive or pertinent negative responses have been documented in the HPI. ROS Other: All systems not noted in ROS Statement are negative. Past Medical History Past Medical History: Asthma, COPD, Renal Disease, Respiratory Disorder Additional Past Medical History / Comment(s): TACHYCARDIA. WAS ON VENT X 1 1/2 MOS. R/T UNKNOWN LUNG CONDITION, STATES ALVEOLI HEMORRHAGE. ACUTE RESP. FAILURE. WAS ON DIALYSIS X 2 MOS. CHRONIC KIDNEY DISEASE STAGE 3B History of Any Multi-Drug Resistant Organisms: MRSA Date of last positivie culture/infection: 2012 MDRO Source:: Lungs, per patient. Past Surgical History: Uterine Ablation Additional Past Surgical History / Comment(s): D & C, ENDOMET. ABLATION. RIGHT FOOT ORIF Past Anesthesia/Blood Transfusion Reactions: No Reported Reaction Past Psychological History: Anxiety Smoking Status: Former smoker - Past Family History Mother Family Medical History: Diabetes Mellitus General Exam Limitations: no limitations General appearance: alert, in no apparent distress Head exam: Present: atraumatic, normocephalic, normal inspection ENT exam: Present: mucous membranes moist. Absent: normal oropharynx (Small dental lucian #2) Neck exam: Present: normal inspection, full ROM. Absent: tenderness, meningismus, lymphadenopathy Respiratory exam: Present: normal lung sounds bilaterally. Absent: respiratory distress, wheezes, rales, rhonchi, stridor Cardiovascular Exam: Present: regular rate, normal rhythm, normal heart sounds. Absent: systolic murmur, diastolic murmur, rubs, gallop, clicks Psychiatric exam: Present: normal affect, normal mood Skin exam: Present: warm, dry, intact, normal color. Absent: rash Course Vital Signs 04/07/18 11:53 Temperature 93.8 F L Pulse Rate 88 Respiratory 18 Rate Blood Pressure 169/92 O2 Sat by Pulse 97 Oximetry Procedures - Nerve Block Consent Obtained: verbal consent Local Anesthetic Used: MARCAINE 0.25% with EPI Amount of anesthesia used: 2 Side: right Intraoral Nerve Block: superior alveolar Procedure Successful: Yes Complications: none Patient Tolerated Procedure: well, no complications Medical Decision Making - Medical Decision Making 43-year-old presented for dental pain. Superior posterior alveolar block was performed. Patient tolerated well no complications. Patient we discharged with follow-up with dentist. Disposition Clinical Impression: Toothache Disposition: HOME SELF-CARE Condition: Stable Instructions (If sedation given, give patient instructions): Toothache (ED) Additional Instructions: Please return to the Emergency Department if symptoms worsen or any other concerns. Prescriptions: Penicillin V Potassium [Pen Vee K] 500 mg PO QID #40 tablet Is patient prescribed a controlled substance at d/c from ED?: No Referrals: Rosanna Abreu MD [Primary Care Provider] - 1-2 days Time of Disposition: 12:34
[2018-04-07] MEDS ORDERED: BUPIVACAINE (PF) 0.25% 30 ML VIAL MISCELLANE STA (12:33)
[2018-04-07] MEDS ORDERED: ACET/COD 300 MG/30 MG STARTER PACK 6 TAB BTL PO STA (12:35)
[2018-04-07 12:58] VITALS: TEMP 97.1
== END 2018-04-07 12:58 | disposition home or self-care (01) ==
LOC: EC 11:46
DX: K08.89 Other specified disorders of teeth and supporting structures (principal); J96.90 Respiratory failure, unspecified, unspecified whether with hypoxia or hypercapnia; N18.3 Chronic kidney disease, stage 3 (moderate); Z99.2 Dependence on renal dialysis; Z86.14 Personal history of Methicillin resistant Staphylococcus aureus infection; Z87.891 Personal history of nicotine dependence; Z91.040 Latex allergy status; Z91.048 Other nonmedicinal substance allergy status
CPT/HCPCS: 64400; 99282

== ENCOUNTER 2020-08-12 12:26 | Inpatient (IN) | payer BC ==
[~2020-08-12 12:26] MED LIST: HEPARIN SODIUM 1,000 UN/ML (10ML VL) IV ONE; TICAGRELOR 90 MG TAB PO ONE
[2020-08-12] MEDS ORDERED: HEPARIN SODIUM 1,000 UN/ML (10ML VL) IV ONE (12:28)
[2020-08-12] MEDS ORDERED: SODIUM CHLORIDE 0.9% 500 ML 500 ML IV STA (12:28)
[2020-08-12] MEDS ORDERED: NITROGLYCERIN OINT 1 INCH/GM PACKET TOPICAL STA (12:28)
[2020-08-12] MEDS ORDERED: ATORVASTATIN 80 MG TAB PO STA (12:29)
[2020-08-12] MEDS ORDERED: LIDOCAINE 1% INJ 10MG/ML (20 ML MDV) ONE (12:35)
[2020-08-12] MEDS ORDERED: VERAPAMIL 2.5 MG/ML 2 ML AMP ONE (12:35)
[2020-08-12] MEDS ORDERED: IV FLUID CONTINUATION 1,000 ML IV ONE ×2 (12:40)
--- NOTE | 2020-08-12 12:43 | ED ---
General Adult HPI - General Chief complaint: Chest Pain Stated complaint: Stemi Time Seen by Provider: 08/12/20 12:26 Source: patient, RN notes reviewed, old records reviewed Mode of arrival: EMS Limitations: no limitations - History of Present Illness Initial comments: This is a 45-year-old female who presents emergency Department stating he has a past medical history significant for kidney disease as well as smoking. Patient denies any significant family history. Patient states an hour and half prior to arrival she had chest tightness that radiated to her back and some shortness of breath per patient denies any diaphoretic episodes. Patient denies any nausea. She called EMS and was immediately when they arrived they saw some abnormalities on EKG consistent with a STEMI and they sent the EKG to the emergency department. Patient's EKG was repeated and they sent that as well as an obvious STEMI at which point in time a STEMI was called overhead. Dr. Demarco was here to greet the patient she arrived. Patient states she feels better after some aspirin resting but still is having some chest tightness. Patient denies any calf tenderness or leg pain or swelling - Related Data Home Medications Medication Instructions Recorded Confirmed Acetaminophen [Tylenol Extra 500 mg PO Q6H PRN 04/07/18 04/07/18 Strength] Previous Rx's Medication Instructions Recorded Penicillin V Potassium [Pen Vee K] 500 mg PO QID #40 tablet 04/07/18 Allergies Allergy/AdvReac Type Severity Reaction Status Date / Time aloe vera Allergy Rash/Hives Verified 04/07/18 12:27 latex Allergy Unknown Verified 04/07/18 12:27 metronidazole [From Flagyl] Allergy Anaphylaxis Verified 08/12/20 12:33 Review of Systems ROS Statement: Those systems with pertinent positive or pertinent negative responses have been documented in the HPI. ROS Other: All systems not noted in ROS Statement are negative. Past Medical History Past Medical History: Asthma, COPD, Renal Disease, Respiratory Disorder Additional Past Medical History / Comment(s): TACHYCARDIA. WAS ON VENT X 1 1/2 MOS. R/T UNKNOWN LUNG CONDITION, STATES ALVEOLI HEMORRHAGE. ACUTE RESP. FAILURE. WAS ON DIALYSIS X 2 MOS. CHRONIC KIDNEY DISEASE STAGE 3B History of Any Multi-Drug Resistant Organisms: MRSA Date of last positivie culture/infection: 2012 MDRO Source:: Lungs, per patient. Past Surgical History: Uterine Ablation Additional Past Surgical History / Comment(s): D & C, ENDOMET. ABLATION. RIGHT FOOT ORIF Past Anesthesia/Blood Transfusion Reactions: No Reported Reaction Past Psychological History: Anxiety Smoking Status: Current every day smoker Past Alcohol Use History: Rare Past Drug Use History: None Reported - Past Family History Mother Family Medical History: Diabetes Mellitus General Exam - General Exam Comments Initial Comments: GENERAL: Patient is well-developed and well-nourished. Patient is nontoxic and well- hydrated and is in mild distress. ENT: Neck is soft and supple. No significant lymphadenopathy is noted. Oropharynx is clear. Moist mucous membranes. Neck has full range of motion without eliciting any pain. EYES: The sclera were anicteric and conjunctiva were pink and moist. Extraocular movements were intact and pupils were equal round and reactive to light. Eyelids were unremarkable. PULMONARY: Unlabored respirations. Good breath sounds bilaterally. No audible rales rhonchi or wheezing was noted. CARDIOVASCULAR: There is a regular rate and rhythm without any murmurs gallops or rubs. ABDOMEN Soft and nontender with normal bowel sounds. SKIN: Skin is clear with no lesions or rashes and otherwise unremarkable. NEUROLOGIC: Patient is alert and oriented x3. Cranial nerves II through XII are grossly intact. Motor and sensory are also intact. Normal speech, volume and content. Symmetrical smile. MUSCULOSKELETAL: Normal extremities with adequate strength and full range of motion. No lower extremity swelling or edema. No calf tenderness. LYMPHATICS: No significant lymphadenopathy is noted PSYCHIATRIC: Normal psychiatric evaluation. Limitations: no limitations Course Vital Signs 08/12/20 12:28 Temperature 98.4 F Pulse Rate 98 Respiratory 20 Rate Blood Pressure 204/108 O2 Sat by Pulse 100 Oximetry Medical Decision Making - Medical Decision Making EKG shows normal sinus rhythm at 92 bpm IN interval 258 QRSs 82 QT interval 370 QTC is 460 per patient's EKG shows ST segment elevation in II, III, and F aVF as well as V6. Patient also has some T-wave inversions in leads V1 and V2 as well as aVL I spoke with Dr. Demarco and on a couple of occasions the physician security assistant. I also spoke with some physicians agreed to admit the patient admitted the patient wrote admitting orders. I spoke with family. I gave the patient heparin short he had aspirin in route and I also started patient on Lipitor and place some Nitropaste and gave the patient a bolus of fluid 500 Critical Care Time Critical Care Time: Yes Total Critical Care Time: 30 Disposition Clinical Impression: ST elevation myocardial infarction (STEMI) Disposition: ADMITTED IP TO THIS HOSP Referrals: Rosanna Abreu MD [Primary Care Provider] - 1-2 days Time of Disposition: 12:43
--- NOTE | 2020-08-12 12:49 | XR ---
EXAMINATION TYPE: XR chest 1V portable DATE OF EXAM: 08/12/2020 COMPARISON: 08/25/2016 INDICATION: Chest pain TECHNIQUE: Single frontal view of the chest is obtained. FINDINGS: The heart size is enlarged. The pulmonary vasculature is normal. The lungs are clear. IMPRESSION: 1. Cardiomegaly
[2020-08-12] MEDS ORDERED: fentaNYL (PF) 50 MCG/ML 2 ML AMP ONE (12:50)
[2020-08-12] MEDS ORDERED: LIDOCAINE 1% INJ 10MG/ML (20 ML MDV) SQ ONE (12:53)
[2020-08-12] MEDS: MIDAZOLAM 2 MG/2 ML VIAL IVP ONE ×2 (12:53→13:31)
[2020-08-12] MEDS ORDERED: VERAPAMIL SYRINGE (5 MG/10 ML) INTRAARTER ONE (12:53)
[2020-08-12] MEDS ORDERED: fentaNYL (PF) 50 MCG/ML 2 ML AMP IVP ONE (12:53)
[2020-08-12] MEDS ORDERED: HEPARIN SODIUM 1,000 UN/ML (10ML VL) ONE (12:54)
[2020-08-12] MEDS ORDERED: TICAGRELOR 90 MG TAB ONE (12:57)
--- NOTE | 2020-08-12 12:59 | P.CRDCN ---
History of Present Illness History of present illness: HISTORY OF PRESENTING ILLNESS This is a pleasant 45-year-old female past medical history significant for nicotine dependence, chronic kidney disease, COPD, asthma. 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 She was admitted to [facility] and was intubated on mechanical ventilator, PEG tube was placed, patient did apparently underwent ECMO. Patient also developed renal failure at that time. We have been asked to see in consultation for STEMI. Patient is seen and examined in the emergency department. Patient has had increased chest tightness, radiating to her back and shortness of breath at home. EMS was called. Initial EKG revealed ST elevation in the inferior leads. Patient denies diaphoresis or nausea. Patient denies history of diabetes, previous OK, previous stent placements. Denies family history of cardiac disease. She states she occasionally drinks alcohol. Denies illicit drug use. Repeat EKG at bedside reveals sinus rhythm, heart rate 92, ST elevation in leads II, III, and aVF, and V6. Patient was given 325mg aspirin and 1L bolus prior to arrival to hospital. Also given IV heparin 4,000units and 80mg Lipitor. Patient was agreeable to cardiac catheterizationi and taken to the lab support technician. Most recent echocardiogram- 08/2016 revealed left ventricular systolic function is normal with an EF between 55-60%, trace mitral regurgitation, trace tricuspid regurgitation REVIEW OF SYSTEMS At the time of my exam: CONSTITUTIONAL: Denies fever or chills. CARDIOVASCULAR: +chest pain, +shortness of breath, Denies orthopnea, PND or palpitations. RESPIRATORY: Denies cough. GASTROINTESTINAL: Denies abdominal pain, diarrhea, constipation, nausea or vomiting. MUSCULOSKELETAL: Denies myalgias. NEUROLOGIC: Denies numbness, tingling, headacbe or weakness. ENDOCRINE: Denies fatigue, weight change, polydipsia or polyurina. GENITOURINARY: Denies burning, hematuria or urgency with micturation. HEMATOLOGIC: Denies history of anemia or bleeding. PHYSICAL EXAMINATION Blood pressure 204/108 heart rate 98 afebrile and maintaining oxygen saturation 100% on room air CONSTITUTIONAL: Currently stable. Alert and oriented. Speaking in clear sentences. HEENT: Head is normocephalic. Pupils are equal, round. Sclerae anicteric. Mucous membranes of the mouth are moist. No JVD. No carotid bruit. CHEST EXAMINATION: Lungs are essentially clear to auscultation. No chest wall tenderness is noted on palpation or with deep breathing. HEART EXAMINATION: Regular rate and rhythm. S1, S2 heard. No murmurs, gallops or rub. ABDOMEN: Soft, nontender. Positive bowel sounds. EXTREMITIES: 2+ peripheral pulses, no lower extremity edema and no calf tenderness. NEUROLOGIC EXAMINATION: Patient is awake, alert and oriented x3. ASSESSMENT Acute ST elevation myocardial infarction History of COPD/[place] Chronic Kidney Disease Hypertension Chronic nicotine dependence PLAN Plan for cardiac catheterization with possible intervention with Dr. Demarco. Patient is agreeable to procedure I have discussed the risks, benefits and alternative therapies for the above- mentioned procedure and for both sedation/analgesia as well as necessary blood product administration, if indicated, as they pertain to this patient. The pat ient has indicated understanding and acceptance of the risks and procedures discussed. Questions have been answered appropriately and he is agreeable to move forward with the above-stated procedure. Further recommendations to follow. Nurse Practitioner note has been reviewed, I agree with a documented findings and plan of care. Patient was seen and examined. Past Medical History Past Medical History: Asthma, COPD, Renal Disease, Respiratory Disorder Additional Past Medical History / Comment(s): TACHYCARDIA. WAS ON VENT X 1 1/2 MOS. R/T UNKNOWN LUNG CONDITION, STATES ALVEOLI HEMORRHAGE. ACUTE RESP. FAILURE. WAS ON DIALYSIS X 2 MOS. CHRONIC KIDNEY DISEASE STAGE 3B History of Any Multi-Drug Resistant Organisms: MRSA Date of last positivie culture/infection: 2012 MDRO Source:: Lungs, per patient. Past Surgical History: Uterine Ablation Additional Past Surgical History / Comment(s): D & C, ENDOMET. ABLATION. RIGHT FOOT ORIF Past Anesthesia/Blood Transfusion Reactions: No Reported Reaction Past Psychological History: Anxiety Smoking Status: Current every day smoker Past Alcohol Use History: Rare Past Drug Use History: None Reported - Past Family History Mother Family Medical History: Diabetes Mellitus Medications and Allergies Home Medications Medication Instructions Recorded Confirmed Type Acetaminophen [Tylenol Extra 500 mg PO Q6H PRN 04/07/18 04/07/18 History Strength] Penicillin V Potassium [Pen Vee K] 500 mg PO QID #40 tablet 04/07/18 Rx Allergies Allergy/AdvReac Type Severity Reaction Status Date / Time aloe vera Allergy Rash/Hives Verified 04/07/18 12:27 latex Allergy Unknown Verified 04/07/18 12:27 metronidazole [From Flagyl] Allergy Anaphylaxis Verified 08/12/20 12:33 Physical Exam Vitals: Vital Signs Temp Pulse Resp BP Pulse Ox 08/12/20 12:28 98.4 F 98 20 204/108 100 Intake and Output 08/11/20 08/12/20 08/12/20 22:59 06:59 14:59 Other: Weight 102.512 kg Results Current Medications Generic Name Dose Route Start Last Admin Trade Name Freq PRN Reason Stop Dose Admin Sodium Chloride 500 mls @ 999 mls/hr 08/12/20 12:28 08/12/20 12:35 Saline 0.9% IV 08/12/20 12:58 999 mls/hr .Q31M STA Administration Intake and Output 08/11/20 08/12/20 08/12/20 22:59 06:59 14:59 Other: Weight 102.512 kg Patient Weight 08/13/20 06:59 Weight 102.512 kg
[2020-08-12] MEDS ORDERED: NITROGLYCERIN 1000MCG/10ML SYRINGE INTRACORON ONE ×2 (13:07→13:20)
[2020-08-12] MEDS ORDERED: niCARdipine 25 MG/10 ML VIAL ONE (13:07)
[2020-08-12] MEDS: niCARdipine Syringe (1,000 mcg/10 mL) INTRACORON ONE ×2 (13:09→13:13)
[2020-08-12] MEDS ORDERED: IOPAMIDOL-370 125ML BTL INJ ONE ×2 (13:12→13:59)
[2020-08-12] MEDS ORDERED: HEPARIN SOD,PORK IN 0.45% NACL 25,000 UNIT in 0.45% NACL 1 250ML.BAG IV ONE (13:45)
[2020-08-12] MEDS ORDERED: HEPARIN SODIUM 1,000 UN/ML (10ML VL) IV PRN ×2 (13:51→17:27)
[2020-08-12] MEDS ORDERED: HEPARIN SOD,PORK IN 0.45% NACL 25,000 UNIT in 0.45% NACL 1 250ML.BAG IV SCH (14:00)
--- NOTE | 2020-08-12 14:35 | P.HPIM ---
History of Present Illness H&P Date: 08/12/20 Chief Complaint: Chest pain This is a 45-year-old white female who was admitted to the hospital with chest pain. She was found to have STEMI and was taken to the Motorized Squad Commanding Officer. No stent was placed. She initially described her pain as chest tightness radiating to her back moderate severity with some shortness of breath but denies diaphoreses or sweating. Chest pain started about an hour and half prior to arrival to the emergency room. At the time of examination patient is post cath, she denies any chest pain, no shortness of breath, no nausea no vomiting no dizziness no subjective fever or chills. She appears to be comfortable. Review of Systems 10 systems reviewed, pertinent positive and negative findings as in HPI. No abdominal pain no nausea or vomiting Past Medical History Past Medical History: Asthma, COPD, Renal Disease, Respiratory Disorder Additional Past Medical History / Comment(s): TACHYCARDIA. WAS ON VENT X 1 1/2 MOS. R/T UNKNOWN LUNG CONDITION, STATES ALVEOLI HEMORRHAGE. ACUTE RESP. FAILURE. WAS ON DIALYSIS X 2 MOS. CHRONIC KIDNEY DISEASE STAGE 3B History of Any Multi-Drug Resistant Organisms: MRSA Date of last positivie culture/infection: 2012 MDRO Source:: Lungs, per patient. Past Surgical History: Uterine Ablation Additional Past Surgical History / Comment(s): D & C, ENDOMET. ABLATION. RIGHT FOOT ORIF Past Anesthesia/Blood Transfusion Reactions: No Reported Reaction Past Psychological History: Anxiety Smoking Status: Current every day smoker Past Alcohol Use History: Rare Past Drug Use History: None Reported - Past Family History Mother Family Medical History: Diabetes Mellitus Medications and Allergies Home Medications Medication Instructions Recorded Confirmed Type Acetaminophen [Tylenol Extra 500 mg PO Q6H PRN 04/07/18 04/07/18 History Strength] Penicillin V Potassium [Pen Vee K] 500 mg PO QID #40 tablet 04/07/18 Rx Allergies Allergy/AdvReac Type Severity Reaction Status Date / Time aloe vera Allergy Rash/Hives Verified 04/07/18 12:27 latex Allergy Unknown Verified 04/07/18 12:27 metronidazole [From Flagyl] Allergy Anaphylaxis Verified 08/12/20 12:33 Physical Exam Vitals: Vital Signs Temp Pulse Resp BP Pulse Ox 08/12/20 12:28 98.4 F 98 20 204/108 100 Intake and Output 08/11/20 08/12/20 08/12/20 22:59 06:59 14:59 Intake Total 450 Balance 450 Intake: IV 450 Other: Weight 102.512 kg Constitutional: No acute distress, conversant, pleasant Eyes: Anicteric sclerae, moist conjunctiva, no lid-lag, PERRLA ENMT: NC/AT,Oropharynx clear, no erythema, exudates Neck:Supple, FROM, no masses Lungs: Clear to auscultation, Clear to percussion, Normal respiratory effort, no accessory muscle use Cardiovascular: Heart regular in rate and rhythm, No murmurs, gallops, or rubs no peripheral edema Abdominal: Soft Nontender, non distended, no guarding, no rebound or rigidity, Normoactive bowel sounds, obese Skin: Normal temperature, tone, texture, turgor, No induration No subcutaneous nodules, No rash, lesions, No ulcers Extremities:No digital cyanosis No clubbing, Pedal pulses intact and symmetrical Radial pulses intact and symmetrical Normal gait and station, No calf tenderness Psychiatric: Alert and oriented to person, place and time, Appropriate affect Intact judgement Neuro: Muscles Strength 5/5 in all 4 extremities, Sensation to light touch grossly present throughout, Cranial nerves II-XII grossly intact. No focal sensory deficits Assessment and Plan Plan: 1. ST segment elevation MN: Status post cardiac catheterization without stent with ballooning , cardiology following, adjusting medications. Continue supportive care. Monitor in the ICU. 2. Morbid obesity: BMI 44.1 3. COPD/asthma without exacerbation: Oxygen and bronchodilators as indicated 4. Chronic kidney disease stage III a of unknown etiology: Serum creatinine 1.3 at baseline, recheck renal function and monitor. 5. History of pulmonary alveolar hemorrhage in 2013: Monitor. Admit to ICU Disposition: Pending clinical progression
[2020-08-12 14:43] LABS: Basophils # (A) 0.1 k/uL (0-0.2); Basophils % (A) 1 %; Eosinophils # (A) 0.1 k/uL (0-0.7); Eosinophils % (A) 1 %; HGB 15.9 gm/dL (11.4-16.0); Lymphocytes # (A) 1.9 k/uL (1.0-4.8); Lymphocytes % (A) 16 %; MCH 28.7 pg (25.0-35.0); MCHC 32.4 g/dL (31.0-37.0); MCV 88.5 fL (80.0-100.0); Mean Platelet Volume 6.9; Monocytes # (A) 0.7 k/uL (0-1.0); Monocytes % (A) 6 %; Neutrophils # (A) 8.7 k/uL (1.3-7.7); Neutrophils % (A) 74 %; Platelet Count 285 k/uL (150-450); RBC 5.53 m/uL (3.80-5.40); RDW 12.9 % (11.5-15.5); WBC 11.7 k/uL (3.8-10.6)
[2020-08-12 15:04] LABS: INR 1.2 (<1.2); Prothrombin Time 12.2 sec (9.0-12.0)
[2020-08-12 15:08] LABS: Partial Thromboplastin Time 116.5 sec (22.0-30.0)
[2020-08-12] MEDS ORDERED: NITROGLYCERIN SL TABS 0.4 MG TAB SUBLINGUAL PRN (17:26)
[2020-08-12] MEDS ORDERED: MAG HYDROX/AL HYDROX/SIMETH 30 ML CUP PO PRN (17:26)
[2020-08-12] MEDS ORDERED: RX INFO: IV CONTRAST WAS GIVEN 1 EACH MISC MISCELLANE PRN (17:26)
[2020-08-12] MEDS ORDERED: ATROPINE SULFATE 0.1 MG/ML 10ML SYRINGE IV PRN (17:26)
--- NOTE | 2020-08-12 17:54 | P.PRCINT ---
Percutaneous Coronary Int. - Percutaneous Coronary Intervention Percutaneous Coronary Intervention: PROCEDURES PERFORMED: Bilateral coronary angiography, balloon angioplasty of PLV, Penumbra aspiration thrombectomy of PLV, IVUS PLV INDICATION: Patient is a pleasant 45-year-old female with history of chronic kidney disease, prior ECMO related to respiratory failure who presents secondary to acute onset of chest pressure associated with some shortness breath approximately an hour and a half before arrival. Patient was found to have ST elevations inferiorly by EMS and therefore label designer was activated. CONSENT:I have discussed the risks, benefits and alternative therapies for the above-mentioned procedure and for both sedation/analgesia as well as necessary blood product administration, if indicated, as they pertain to this patient. The patient has indicated understanding and acceptance of the risks and pr ocedures discussed. PROCEDURE: After the risks, benefits and alternatives of the above mentioned procedure explained in detail with the patient, informed consent was obtained. Patient was taken to the catheterization lab and prepped and draped in usual fashion. 1% lidocaine was used to anesthetize the right radial artery. A 6- Ghanaian sheath was placed in the right radial artery using modified Seldinger technique. Left coronary angiography was performed with a 5-Ghanaian JL 3.5 catheter and right coronary angiography was performed with a 6-Ghanaian AL1 guide catheter in various views. The decision was made to perform intervention of the PLV. Initially a 2.5 x 12 mm balloon was used to predilate the PLV. This did not result in any improvement in flow. Intracoronary nitroglycerin and nicardipine were attempted due to concerns of heavy thrombus which was unsuccessful. Secondary to concern of thrombus, number aspiration was performed with decrease in flow noted at the lesion and therefore the entire device was withdrawn with suction with a large approximately 1 cm x 2 mm bread thrombus noted. Repeat imaging showed no further significant stenosis at the prior area of 100% stenosis. I've this was performed which showed no significant stenosis at the area of the lesion however there was more proximal diffuse dissection, not resulting in any impingement on the arterial wall mainly representing intramural hematoma. The wire was pulled and final images were obtained. Preintervention there is 100% stenosis and GEOVANNI 0 flow of the PLV and postintervention there was 0% stenosis with GEOVANNI 3 flow. The right radial sheath was removed and a TR band was placed with hemostasis achieved. The patient tolerated the procedure well. Patient was transported back to the post catheterization holding area in stable condition. Conscious Sedation: Patient was monitored under the direct supervision of vision of myself for conscious sedation using Versed and fentanyl for a total duration of 51 minutes HEMODYNAMICS: Ao: 141/82 SELECTIVE CORONARY ARTERIOGRAPHY: LEFT MAIN: The left main is a large caliber vessel which bifurcates into the LAD and circumflex. There is no significant stenosis. LEFT ANTERIOR DESCENDING CORONARY ARTERY: LAD is a large caliber vessel which wraps around to the apex. There is no significant stenosis. LEFT CIRCUMFLEX CORONARY ARTERY: Left circumflex is a moderate caliber vessel without significant stenosis. RIGHT CORONARY ARTERY: The right coronary artery is a large caliber vessel which gives off a PDA and PLV branch and is the dominant vessel. There is a long area of dissection extending from the proximal RCA to the mid PLV. There is 100% stenosis of the distal PLV. IVUS of RCA: IVUS showed no significant atherosclerosis, with normal anatomy at area of 100% stenosis. There was a long segment of dissection extending from the proximal RCA to mid PLV which mainly is an intramural hematoma without significant impingement on the arterial lumen. FINAL IMPRESSION: 1. Inferior STEMI 2. 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 Otherwise normal coronary arteries PLAN: 1. Aggressive risk factor modification per most recent ACC/AHA guidelines. 2. Given thromboembolism from dissection as most likely etiology of PLV stenosis, would recommend 24 hrs of heparin drip. Continue dual antiplatelets. No stenting of dissection unless recurrent chest pain given patient is now chest pain free with GEOVANNI 3 flow as this should heal on it's own.
[2020-08-12] MEDS ORDERED: METOPROLOL TARTRATE 12.5 MG TAB PO SCH (21:00)
[2020-08-12] MEDS: ACETAMINOPHEN TAB 325 MG TAB PO PRN (21:03)
[2020-08-12] MEDS: ZOLPIDEM 5 MG TAB PO PRN (21:04)
[2020-08-12] MEDS: NICOTINE 14MG/24HR PATCH TRANSDERM SCH (22:12)
[2020-08-12 22:44] LABS: INR 1.1 (<1.2); Partial Thromboplastin Time 27.1 sec (22.0-30.0); Prothrombin Time 11.2 sec (9.0-12.0)
[2020-08-12] MEDS: HEPARIN SOD,PORK IN 0.45% NACL 25,000 UNIT in 0.45% NACL 1 250ML.BAG IV SCH (23:15)
[2020-08-13 05:42] LABS: Basophils # (A) 0.1 k/uL (0-0.2); Basophils % (A) 1 %; Eosinophils # (A) 0.3 k/uL (0-0.7); Eosinophils % (A) 2 %; HCT 50.3 % (34.0-46.0); HGB 16.9 gm/dL (11.4-16.0); Lymphocytes % (A) 21 %; MCH 29.9 pg (25.0-35.0); MCHC 33.6 g/dL (31.0-37.0); MCV 89.1 fL (80.0-100.0); Monocytes % (A) 7 %; Neutrophils # (A) 9.5 k/uL (1.3-7.7); Neutrophils % (A) 67 %; Platelet Count 298 k/uL (150-450); RBC 5.64 m/uL (3.80-5.40); RDW 12.5 % (11.5-15.5); WBC 14.3 k/uL (3.8-10.6)
[2020-08-13 06:17] LABS: INR 1.2 (<1.2)
[2020-08-13 06:24] LABS: Albumin 3.8 g/dL (3.5-5.0); Calcium 8.7 mg/dL (8.4-10.2); Potassium 4.3 mmol/L (3.5-5.1); Total Bilirubin 0.6 mg/dL (0.2-1.3); Total Protein 6.4 g/dL (6.3-8.2)
[2020-08-13] MEDS: HEPARIN SOD,PORK IN 0.45% NACL 25,000 UNIT in 0.45% NACL 1 250ML.BAG IV SCH (07:31)
--- NOTE | 2020-08-13 07:33 | XR ---
EXAMINATION TYPE: XR chest 1V DATE OF EXAM: 08/13/2020 COMPARISON: 08/12/2020 HISTORY: 45-year-old female shortness of breath TECHNIQUE: Single frontal view of the chest is obtained. FINDINGS: Heart upper limits of normal in size. Fine interstitial density in the right consolidation or pleural effusion. IMPRESSION: Borderline heart size. Fine interstitial densities now apparent. Consider etiologies such as intersti tial pneumonitis or developing pulmonary vascular congestion.
[2020-08-13] MEDS ORDERED: ATORVASTATIN 10 MG TAB PO SCH (09:00)
[2020-08-13] MEDS: ASPIRIN 81 MG PO SCH (09:04)
[2020-08-13] MEDS: NICOTINE 14MG/24HR PATCH TRANSDERM SCH (09:04)
[2020-08-13] MEDS: METOPROLOL TARTRATE 25 MG TAB PO SCH ×2 (09:04→20:01)
[2020-08-13] MEDS: TICAGRELOR 90 MG TAB PO SCH ×2 (09:04→20:01)
[2020-08-13] MEDS: ACETAMINOPHEN TAB 325 MG TAB PO PRN ×2 (09:06→15:46)
[2020-08-13 10:26] VITALS: BMI 44.1
--- NOTE | 2020-08-13 10:41 | P.PN ---
Subjective Progress Note Date: 08/13/20 Feels fine today, no chest pain no abdominal pain, no shortness of breath. Complains of slight headache. No nausea or vomiting. Objective - Vital Signs Vital signs: Vital Signs Temp 98.3 F 08/13/20 08:00 Pulse 89 08/13/20 08:00 Resp 18 08/13/20 08:00 BP 117/83 08/13/20 08:00 Pulse Ox 93 L 08/13/20 08:00 Intake & Output 08/12/20 08/13/20 08/13/20 18:59 06:59 18:59 Intake Total 825 1072.96 506.068 Output Total 1000 1050 Balance -175 22.96 506.068 Weight 102.512 kg 102.512 kg Intake: IV 825 1025 40 0.9 375 1025 40 Intake, IV Titration 0 47.96 166.068 Amount Heparin Sod,Pork in 0.45% 166.068 NaCl 25,000 unit In 0.45 % NaCl 1 250ml.bag @ 18 UNITS/KG/HR 18.452 mls/hr IV .[id number] [facility] Rx#: [id number] Heparin Sod,Pork in 0.45% 0 47.96 NaCl 25,000 unit In 0.45 % NaCl 1 250ml.bag @ 9.76 UNITS/KG/HR 10.005 mls/ hr IV .Q24H [facility] Rx#: [id number] Oral 300 Output: Urine 1000 1050 Other: Voiding Method Toilet Toilet - Exam Constitutional: No acute distress, conversant, pleasant Eyes: Anicteric sclerae, moist conjunctiva, no lid-lag, PERRLA ENMT: NC/AT Neck:Supple, FROM, no masses Lungs: Clear to auscultation, Normal respiratory effort, no accessory muscle use Cardiovascular: Heart regular in rate and rhythm, No murmurs, gallops, or rubs no peripheral edema Abdominal: Soft Nontender, non distended, no guarding, no rebound or rigidity, Normoactive bowel sounds, obese Skin: Normal temperature, tone, texture, turgor, No induration No subcutaneous nodules, No rash, lesions, No ulcers Extremities:No digital cyanosis No clubbing, Pedal pulses intact and symmetrical Radial pulses intact and symmetrical Normal gait and station, No calf tenderness Psychiatric: Alert and oriented to person, place and time, Appropriate affect Intact judgement Neuro: Muscles Strength 5/5 in all 4 extremities, Sensation to light touch grossly present throughout, Cranial nerves II-XII grossly intact. No focal sensory deficits - Labs CBC & Chem 7: 08/13/20 05:06 08/13/20 05:06 Labs: Abnormal Lab Results - Last 24 Hours (Table) 08/12/20 08/12/20 08/13/20 Range/Units 14:31 14:31 05:06 WBC 11.7 H (3.8-10.6) k/uL RBC 5.53 H (3.80-5.40) m/uL Hgb (11.4-16.0) gm/dL Hct 49.0 H (34.0-46.0) % Neutrophils # 8.7 H (1.3-7.7) k/uL PT 12.2 H (9.0-12.0) sec INR 1.2 H (<1.2) APTT 116.5 H* (22.0-30.0) sec Chloride 109 H (98-107) mmol/L Creatinine 1.06 H (0.52-1.04) mg/dL Glucose 104 H (74-99) mg/dL AST 143 H (14-36) U/L ALT 35 H (4-34) U/L Troponin I (0.000-0.034) ng/mL 08/13/20 08/13/20 08/13/20 Range/Units 05:06 05:06 05:06 WBC 14.3 H (3.8-10.6) k/uL RBC 5.64 H (3.80-5.40) m/uL Hgb 16.9 H (11.4-16.0) gm/dL Hct 50.3 H (34.0-46.0) % Neutrophils # 9.5 H (1.3-7.7) k/uL PT (9.0-12.0) sec INR 1.2 H (<1.2) APTT (22.0-30.0) sec Chloride (98-107) mmol/L Creatinine (0.52-1.04) mg/dL Glucose (74-99) mg/dL AST (14-36) U/L ALT (4-34) U/L Troponin I 29.500 H* (0.000-0.034) ng/mL 08/13/20 Range/Units 07:26 WBC (3.8-10.6) k/uL RBC (3.80-5.40) m/uL Hgb (11.4-16.0) gm/dL Hct (34.0-46.0) % Neutrophils # (1.3-7.7) k/uL PT (9.0-12.0) sec INR (<1.2) APTT 133.3 H* (22.0-30.0) sec Chloride (98-107) mmol/L Creatinine (0.52-1.04) mg/dL Glucose (74-99) mg/dL AST (14-36) U/L ALT (4-34) U/L Troponin I (0.000-0.034) ng/mL Assessment and Plan Plan: 1. ST segment elevation PR: Status post cardiac catheterization without stent with ballooning , cardiology following, adjusting medications. Continue supportive care. Monitor in the ICU. Possible transfer to medical floor. Heparin on hold secondary to elevated PTT. Continue on aspirin and statin metoprolol and Brilinta. 2. Morbid obesity: BMI 44.1 3. COPD/asthma without exacerbation: Continue Oxygen and bronchodilators as indicated 4. Chronic kidney disease stage III a of unknown etiology: Serum creatinine 1.3 at baseline, recheck renal function and monitor. 5. History of pulmonary alveolar hemorrhage in 2013: Monitor. 6. Leukocytosis: Likely reactive, wbc up to 14,000, monitor Disposition: Pending clinical progression, possible transfer to medical floor
--- NOTE | 2020-08-13 11:24 | PN ---
PROGRESS NOTE Santy is a 45-year-old lady who was admitted to hospital with acute inferior wall myocardial infarction. 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 This morning, she is doing well and is free of symptoms. Does not have chest pain or difficulty in breathing. Her troponin came back at 29. PHYSICAL EXAMINATION: On exam, afebrile. Heart rate is 89 beats and blood pressure 107/82, respirations 18. There is no jugular venous distention. Chest exam reveals good air entry bilaterally. Heart exam reveals first and second heart sounds. No gallop. No murmur. Abdomen is soft, nontender. Examination of extremities did not reveal any edema. Peripheral pulses are felt. LABORATORY DATA: Labs show that the white cell count is elevated, hemoglobin is 16.9, potassium is 4.3 creatinine is 1. Troponin is elevated. MEDICATIONS: Current medications include aspirin, Lipitor, IV heparin, Lopressor, Brilinta. ASSESSMENT: Acute inferior wall myocardial infarction secondary to spontaneous coronary artery dissection. PLAN: Patient will continue current medical therapy. Echo is pending at this time. Heparin will be stopped in the morning. MMODL / IJN: [id number] /
[2020-08-13] MEDS: amLODIPine 10 MG TAB PO SCH (14:44)
[2020-08-13] MEDS: NITROGLYCERIN OINT 1 INCH/GM PACKET TOPICAL SCH ×2 (14:45→17:07)
--- NOTE | 2020-08-13 18:46 | ECHOF ---
Referral Reason:STEMI MEASUREMENTS -------- HEIGHT: 152.4 cm WEIGHT: 102.5 kg BP: 151/94 RVIDd: 3.0 cm (< 3.3) IVSd: 1.4 cm (0.6 - 1.1) LVIDd: 3.8 cm (3.9 - 5.3) LVPWd: 1.3 cm (0.6 - 1.1) IVSs: 1.5 cm LVIDs: 2.6 cm LVPWs: 1.6 cm LAESV Index (A-L): 13.46 ml/m Ao Diam: 3.1 cm (2.0 - 3.7) AV Cusp: 1.9 cm (1.5 - 2.6) MV EXCURSION: 19.523 mm (> 18.000) MV EF SLOPE: 123 mm/s (70 - 150) EPSS: 0.7 cm MV E Yash: 0.87 m/s MV DecT: 234 ms MV A Yash: 0.90 m/s MV E/A Ratio: 0.97 FINDINGS -------- Sinus rhythm. This was a technically difficult study with suboptimal apical views. The left ventricular size is normal. There is moderate concentric left ventricular hypertrophy. O verall left ventricular systolic function is mildly impaired with, an EF between 45 - 50 %. The right ventricle is normal in size. Normal LA size by volume 22+/-6 ml/m2. The right atrial size is normal. Interatrial and interventricular septum intact. There is no evidence of aortic regurgitation. There is no evidence of aortic stenosis. There is trace mitral regurgitation. Mild tricuspid regurgitation present. There is no evidence of pulmonary hypertension. The right v entricular systolic pressure, as measured by Doppler, is {RVSP}. There is no pulmonic regurgitation present. The aortic root size is normal. IVC Not well visulized. There is no pericardial effusion. CONCLUSIONS -------- 1. The left ventricular size is normal. 2. There is moderate concentric left ventricular hypertrophy. 3. Overall left ventricular systolic function is mildly impaired with, an EF between 45 - 50 %. 4. There is trace mitral regurgitation. 5. Mild tricuspid regurgitation present. CLINICAL COUNSELOR: Linda Baeza [facility]
[2020-08-13] MEDS: ZOLPIDEM 5 MG TAB PO PRN (20:01)
[2020-08-14] MEDS: NITROGLYCERIN OINT 1 INCH/GM PACKET TOPICAL SCH (01:58)
[2020-08-14] MEDS: HEPARIN SOD,PORK IN 0.45% NACL 25,000 UNIT in 0.45% NACL 1 250ML.BAG IV SCH (04:33)
[2020-08-14 05:22] LABS: Basophils # (A) 0.1 k/uL (0-0.2); Basophils % (A) 1 %; Eosinophils # (A) 0.4 k/uL (0-0.7); Eosinophils % (A) 3 %; HCT 46.5 % (34.0-46.0); HGB 15.9 gm/dL (11.4-16.0); Lymphocytes # (A) 2.8 k/uL (1.0-4.8); Lymphocytes % (A) 26 %; MCH 30.4 pg (25.0-35.0); MCHC 34.1 g/dL (31.0-37.0); MCV 88.9 fL (80.0-100.0); Mean Platelet Volume 7.2; Monocytes # (A) 0.7 k/uL (0-1.0); Monocytes % (A) 7 %; Neutrophils # (A) 6.5 k/uL (1.3-7.7); Neutrophils % (A) 60 %; Platelet Count 268 k/uL (150-450); RBC 5.23 m/uL (3.80-5.40); RDW 12.5 % (11.5-15.5); WBC 10.7 k/uL (3.8-10.6)
[2020-08-14 05:41] LABS: Albumin 3.5 g/dL (3.5-5.0); Calcium 9.2 mg/dL (8.4-10.2); Potassium 4.3 mmol/L (3.5-5.1); Total Bilirubin 0.4 mg/dL (0.2-1.3); Total Protein 6.1 g/dL (6.3-8.2)
--- NOTE | 2020-08-14 06:59 | P.PN ---
Subjective Progress Note Date: 08/14/20 Principal diagnosis: Acute coronary syndrome This is a 45-year-old female patient was admitted to the hospital with a chest discomfort and EKG concerning for acute inferior ST elevation myocardial infarction. An emergent heart catheterization was performed and revealed spontaneous coronary artery dissection involving the RCA which was treated medically and confirmed by intravascular ultrasound. The patient was seen this morning which is chest pain-free. Hemodynamic the sh e's stable beside being slightly hypertensive and tachycardic. I'm going to increase the dose METOPROLOL as well as increase the dose of Norvasc. The echo showed a mildly impaired LV function was EF around 45%. From a cardiovascular standpoint of view, the patient can be transferred to the floor. Objective - Vital Signs Vital signs: Vital Signs Temp 98.5 F 08/14/20 04:00 Pulse 69 08/14/20 06:00 Resp 16 08/14/20 06:00 BP 114/76 08/14/20 06:00 Pulse Ox 94 L 08/14/20 06:00 Intake & Output 08/13/20 08/13/20 08/14/20 06:59 18:59 06:59 Intake Total 1072.96 831.647 347.701 Output Total 1050 Balance 22.96 831.647 347.701 Weight 102.512 kg Intake: IV 1025 240 220 0.9 1025 240 220 Intake, IV Titration 47.96 291.647 127.701 Amount Heparin Sod,Pork in 0.45% 291.647 127.701 NaCl 25,000 unit In 0.45 % NaCl 1 250ml.bag @ 18 UNITS/KG/HR 18.452 mls/hr IV .[id number] [facility] Rx#: [id number] Heparin Sod,Pork in 0.45% 47.96 NaCl 25,000 unit In 0.45 % NaCl 1 250ml.bag @ 9.76 UNITS/KG/HR 10.005 mls/ hr IV .Q24H [facility] Rx#: [id number] Oral 300 Output: Urine 1050 Other: Voiding Method Toilet Toilet Toilet # Voids 2 1 - Constitutional General appearance: Present: no acute distress - Respiratory Respiratory: bilateral: CTA - Cardiovascular Rhythm: regular Heart sounds: normal: S1, S2 - Labs CBC & Chem 7: 08/14/20 04:27 08/14/20 04:27 Labs: Abnormal Lab Results - Last 24 Hours (Table) 08/13/20 08/13/20 08/13/20 Range/Units 05:06 07:26 17:05 WBC (3.8-10.6) k/uL Hct (34.0-46.0) % APTT 133.3 H* 92.8 H (22.0-30.0) sec Sodium (137-145) mmol/L AST (14-36) U/L Troponin I 29.500 H* (0.000-0.034) ng/mL Total Protein (6.3-8.2) g/dL 08/14/20 08/14/20 08/14/20 Range/Units 00:22 04:27 04:27 WBC 10.7 H (3.8-10.6) k/uL Hct 46.5 H (34.0-46.0) % APTT 59.1 H (22.0-30.0) sec Sodium 136 L (137-145) mmol/L AST 44 H (14-36) U/L Troponin I (0.000-0.034) ng/mL Total Protein 6.1 L (6.3-8.2) g/dL Assessment and Plan Assessment: Assessment #1 acute coronary syndrome #2 spontaneous coronary artery dissection #3 hypertension Plan #1 continue dual antiplatelet therapy #2 the echo was reviewed and showed mildly impaired LV function #3 the patient can be transferred to the floor
[2020-08-14] MEDS: TICAGRELOR 90 MG TAB PO SCH ×2 (07:56→20:16)
[2020-08-14] MEDS: ATORVASTATIN 80 MG TAB PO SCH (07:56)
[2020-08-14] MEDS: ASPIRIN 81 MG PO SCH (07:56)
[2020-08-14] MEDS: amLODIPine 10 MG TAB PO SCH (07:57)
[2020-08-14] MEDS: METOPROLOL TARTRATE 50 MG TAB PO SCH ×2 (07:57→20:16)
[2020-08-14] MEDS: NICOTINE 14MG/24HR PATCH TRANSDERM SCH (07:59)
[2020-08-14] MEDS: SODIUM CHLORIDE 0.9% 1,000 ML IV SCH ×2 (08:54→21:32)
--- NOTE | 2020-08-14 11:05 | CT ---
EXAMINATION TYPE: CT angio neck DATE OF EXAM: 08/14/2020 COMPARISON: None HISTORY: For a 5-year-old female Carotid dissection TECHNIQUE: Contiguous axial scanning of the neck performed with IV Contrast, patient injected with 65 ml mL of Isovue 370. Coronal/sagittal MIP reconstructions performed. 3-D reconstructions generated o n a dedicated independent workstation. CT DLP: 836.2 mGycm Automated exposure control for dose reduction was used. FINDINGS: Visualized upper lungs show at least moderate centrilobular emphysema. Some calcified right paratrach eal lymph nodes suggest sequela of prior granulomatous disease. Bovine configuration to the aortic arch. The vertebral artery origins are patent. The right vertebral artery is minimally more dominant than t he left. The vertebral arteries remain patent throughout the course. The right common and internal carotid arteries are widely patent. Left common and internal carotid arteries are widely patent. Mild mucosal thickening ethmoid air cells. Mild spondylotic change mid to lower cervical spine with reversal of the normal cervical lordosis. IMPRESSION: WIDELY PATENT CAROTID AND VERTEBRAL ARTERIES OF THE NECK. NO EVIDENCE FOR AORTIC DISSECTION. COPD WITH MODERATE EMPHYSEMA WITHIN THE VISUALIZED UPPER LUNGS.
--- NOTE | 2020-08-14 11:10 | P.PN ---
Subjective Progress Note Date: 08/14/20 (delayed charting seen at 0800) Principal diagnosis: chest pain Patient is a 45-year-old female with a history of asthma/COPD, chronic kidney disease stage III B, and prior prolonged ventilation who presented to the hospital due to chest pain. She was found have an ST segment elevated myocardial infarction and was taken to the [facility] where she was found to have spontaneous coronary artery dissection of the RCA extending into the PLB with intramural hematoma resulting in thromboembolism of the dissected thrombus distally. No stenting was advised due to the dissection. The patient was placed on 24 hours of heparin drip. Echocardiogram was obtained with mildly depressed ejection fraction of 45-50%. She had progressed well. Patient seen and examined at bedside. No chest pain, sob, nausea, did have neck pain 1 day prior to chest pain. Recounted her hospital stay in 2012 that included ecmo and General: non toxic, no distress, appears at stated age Derm: warm, dry Head: atraumatic, normocephalic, symmetric Eyes: EOMI, no lid lag, anicteric sclera Mouth: no lip lesion, mucus membranes moist Cardiovascular: S1S2 reg, no murmur, positive posterior tibial pulse bilateral, Lungs: CTA bilateral, no rhonchi, no rales , no accessory muscle use Abdominal: soft, nontender to palpation, no guarding, no appreciable organomegaly Ext: no gross muscle atrophy, no edema, no contractures Neuro: CN II-XI grossly intact, no focal neuro deficits Psych: Alert, oriented, appropriate affect ST segment elevated myocardial infarction resulting from RCA dissection with intramural thrombus -Cardiology regulations appreciated: Status post 24 hours of heparin drip, continue with aspirin, statin, beta harley, and Brillenta - with hx of recent neck pain will check CT neck to rule out carotid dissectionIF any abnormality is seen may need further imaging to tule out concominant fibromuscular dysplasia. -Norvasc Chronic kidney disease stage III undetermined etiology, serum creatinine 1.3 at baseline - doing better than baseline - monitor closely with contrast, resume fluids for 24 hours with contrast Morbid obesity with BMI 44.1 -outpatient structured weight loss COPD without exacerbation - prn bronchdilators Leukocytosis, likely reactive -Downtrending History of pulmonary alveolar hemorrhage, MRSA PNA, ECMO and prolonged ventilation. Objective - Vital Signs Vital signs: Vital Signs Temp 98.5 F 08/14/20 08:00 Pulse 70 06/12/21 10:00 Resp 29 H 08/14/20 08:00 BP 138/83 08/14/20 08:00 Pulse Ox 97 08/14/20 08:00 Intake & Output 08/13/20 08/14/20 08/14/20 18:59 06:59 18:59 Intake Total 831.647 347.701 95 Output Total 1 Balance 831.647 347.701 94 Weight 102.512 kg Intake: IV 240 220 20 0.9 240 220 20 Intake, IV Titration 291.647 127.701 75 Amount Heparin Sod,Pork in 0.45% 291.647 127.701 NaCl 25,000 unit In 0.45 % NaCl 1 250ml.bag @ 18 UNITS/KG/HR 18.452 mls/hr IV .[id number] [facility] Rx#: [id number] Sodium Chloride 0.9% 1, 75 000 ml @ 75 mls/hr IV . [id number] [facility] Rx#:[id number] Oral 300 Output: Urine 1 Other: Voiding Method Toilet Toilet Toilet # Voids 2 1 0 - Labs CBC & Chem 7: 08/14/20 04:27 08/14/20 04:27 Labs: Abnormal Lab Results - Last 24 Hours (Table) 08/13/20 08/14/20 08/14/20 Range/Units 17:05 00:22 04:27 WBC 10.7 H (3.8-10.6) k/uL Hct 46.5 H (34.0-46.0) % APTT 92.8 H 59.1 H (22.0-30.0) sec Sodium (137-145) mmol/L AST (14-36) U/L Total Protein (6.3-8.2) g/dL 08/14/20 Range/Units 04:27 WBC (3.8-10.6) k/uL Hct (34.0-46.0) % APTT (22.0-30.0) sec Sodium 136 L (137-145) mmol/L AST 44 H (14-36) U/L Total Protein 6.1 L (6.3-8.2) g/dL
[2020-08-14] MEDS: ZOLPIDEM 5 MG TAB PO PRN (20:16)
[2020-08-15 04:58] LABS: Basophils # (A) 0.1 k/uL (0-0.2); Basophils % (A) 1 %; Eosinophils # (A) 0.4 k/uL (0-0.7); Eosinophils % (A) 3 %; HCT 47.9 % (34.0-46.0); HGB 16.4 gm/dL (11.4-16.0); Lymphocytes # (A) 2.4 k/uL (1.0-4.8); Lymphocytes % (A) 20 %; MCH 30.2 pg (25.0-35.0); MCHC 34.2 g/dL (31.0-37.0); MCV 88.4 fL (80.0-100.0); Mean Platelet Volume 7.1; Monocytes # (A) 0.8 k/uL (0-1.0); Monocytes % (A) 6 %; Neutrophils % (A) 66 %; Platelet Count 289 k/uL (150-450); RBC 5.42 m/uL (3.80-5.40); RDW 12.5 % (11.5-15.5); WBC 12.1 k/uL (3.8-10.6)
[2020-08-15 05:10] LABS: Calcium 9.2 mg/dL (8.4-10.2)
[2020-08-15 05:28] LABS: Potassium 4.4 mmol/L (3.5-5.1)
--- NOTE | 2020-08-15 06:49 | P.PN ---
Subjective Progress Note Date: 08/15/20 Principal diagnosis: Acute coronary syndrome This is a 45-year-old female patient was admitted to the hospital with a chest discomfort and EKG concerning for acute inferior ST elevation myocardial infarction. An emergent heart catheterization was performed and revealed spontaneous coronary artery dissection involving the RCA which was treated medically and confirmed by intravascular ultrasound. The patient was seen today. She is asymptomatic from a cardiovascular standpoi nt of view. Hemodynamically she is a stable with a good blood pressure and heart rate. From the cardiovascular standpoint of view, the patient can be discharged home and she would like to go home. She need to go on dual antiplatelet therapy along with high intensity statin along with anti-ischemic medications. Objective - Vital Signs Vital signs: Vital Signs Temp 98.1 F 08/15/20 04:00 Pulse 73 08/15/20 04:00 Resp 14 08/15/20 04:00 BP 125/77 08/15/20 04:00 Pulse Ox 96 08/15/20 04:00 Intake & Output 08/14/20 08/14/20 08/15/20 06:59 18:59 06:59 Intake Total 347.341 905 8104 Output Total 0 Balance 347.722 078 3770 Weight 99.6 kg Intake: IV 220 245 75 0.9 220 245 75 Intake, IV Titration 127.701 450 825 Amount Heparin Sod,Pork in 0.45% 127.701 NaCl 25,000 unit In 0.45 % NaCl 1 250ml.bag @ 18 UNITS/KG/HR 18.452 mls/hr IV .[id number] [facility] Rx#: [id number] Sodium Chloride 0.9% 1, 450 825 000 ml @ 75 mls/hr IV . [id number] [facility] Rx#:[id number] Oral 100 Output: Urine 0 Other: Voiding Method Toilet Toilet Toilet # Voids 1 1 1 - Constitutional General appearance: Present: no acute distress - Respiratory Respiratory: bilateral: CTA - Cardiovascular Rhythm: regular Heart sounds: normal: S1, S2 - Labs CBC & Chem 7: 08/15/20 04:25 08/15/20 04:25 Labs: Abnormal Lab Results - Last 24 Hours (Table) 08/15/20 08/15/20 Range/Units 04:25 04:25 WBC 12.1 H (3.8-10.6) k/uL RBC 5.42 H (3.80-5.40) m/uL Hgb 16.4 H (11.4-16.0) gm/dL Hct 47.9 H (34.0-46.0) % Neutrophils # 8.0 H (1.3-7.7) k/uL Sodium 135 L (137-145) mmol/L Creatinine 1.11 H (0.52-1.04) mg/dL Assessment and Plan Assessment: Assessment #1 acute coronary syndrome #2 spontaneous coronary artery dissection #3 hypertension Plan #1 continue dual antiplatelet therapy #2 the echo was reviewed and showed mildly impaired LV function #3 the patient can be d/c home today
[2020-08-15] MEDS: NICOTINE 14MG/24HR PATCH TRANSDERM SCH (08:48)
[2020-08-15] MEDS: ATORVASTATIN 80 MG TAB PO SCH (08:50)
[2020-08-15] MEDS: amLODIPine 10 MG TAB PO SCH (08:51)
[2020-08-15] MEDS: TICAGRELOR 90 MG TAB PO SCH (08:51)
[2020-08-15] MEDS: METOPROLOL TARTRATE 50 MG TAB PO SCH (08:51)
[2020-08-15] MEDS: ASPIRIN 81 MG PO SCH (08:58)
[2020-08-15 09:09] VITALS: BP 132/94; PULSE 79; RESP 17; TEMP 98.3
--- NOTE | 2020-08-15 09:50 | P.DS ---
Providers Date of admission: 08/12/20 13:10 Expected date of discharge: 08/15/20 Attending physician: Sherley Santiago DO Consults: 08/12/20 17:26 Consult Physician Routine Consulting Provider: [facility] Consult Reason/Comments: Post Interventional patient Do you want consulting provider notified?: Already Contacted Primary care physician: Rosanna Abreu MD Hospital Course: Discharge Diagnosis: Sudden coronary artery dissection resulting in ST segment elevated myocardial infarction Hypertensive urgency Tobacco abuse Obesity with BMI 42.9 COPD without exacerbation Leukocytosis, suspect reactive Hospital Course: Patient is a 45-year-old female with a history of asthma/COPD, chronic kidney d isease stage III B, and prior prolonged ventilation who presented to the hospital due to chest pain. 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 No stenting was advised due to the dissection. The patient was placed on 24 hours of heparin drip. Echocardiogram was obtained with mildly depressed ejection fraction of 45-50%. She had a CT of the neck completed which showed widely patent carotid arteries. She had progressed well. She was determined stable for discharge home. Follow-up: Dr. Demarco in 1-2 weeks, Dr. Morris as soon as possible, Medications include Proventil, aspirin, metoprolol, Norvasc, and Lipitor. Patient will work on quitting smoking. Patient seen and examined at bedside. Doing well, having some right sided arm pain when up and moving, no nausea, no vomiting. Vital signs reviewed and stable. General: non toxic, no distress, appears at stated age Derm: warm, dry Head: atraumatic, normocephalic, symmetric Eyes: EOMI, no lid lag, anicteric sclera Mouth: no lip lesion, mucus membranes moist Cardiovascular: S1S2 reg, no murmur, positive posterior tibial pulse bilateral, Lungs: CTA bilateral, no rhonchi, no rales , no accessory muscle use Abdominal: soft, nontender to palpation, no guarding, no appreciable organomegaly Ext: no gross muscle atrophy, no edema, no contractures Neuro: CN II-XI grossly intact, no focal neuro deficits Psych: Alert, oriented, appropriate affect A total of 35 minutes of time were spent preparing this complex discharge summary . Plan - Discharge Summary New Discharge Prescriptions: New Aspirin 81 mg PO DAILY chew Nicotine 21Mg/24Hr Patch [Habitrol] 1 each TRANSDERM DAILY #30 patch Atorvastatin [Lipitor] 80 mg PO DAILY #30 tab Metoprolol Tartrate [Lopressor] 50 mg PO BID #60 tab amLODIPine [Norvasc] 10 mg PO DAILY #30 tab Ticagrelor [Brilinta] 90 mg PO BID #60 tab Discontinued Acetaminophen [Tylenol Extra Strength] 500 mg PO Q6H PRN PRN Reason: Headache Discharge Medication List Aspirin 81 mg PO DAILY chew 08/15/20 [Rx] Atorvastatin [Lipitor] 80 mg PO DAILY #30 tab 08/15/20 [Rx] Metoprolol Tartrate [Lopressor] 50 mg PO BID #60 tab 08/15/20 [Rx] Nicotine 21Mg/24Hr Patch [Habitrol] 1 each TRANSDERM DAILY #30 patch 08/15/20 [Rx] Ticagrelor [Brilinta] 90 mg PO BID #60 tab 08/15/20 [Rx] amLODIPine [Norvasc] 10 mg PO DAILY #30 tab 08/15/20 [Rx] Follow up Appointment(s)/Referral(s): Jamal Demarco DO [STAFF PHYSICIAN] - 1 Week Teodoro Mao [STAFF PHYSICIAN] - 1-2 Days (You will recived a phone call on Sunday regarding your appointment time and date. This appointment would be a new patient appointment and a hospital follow up. ) Activity/Diet/Wound Care/Special Instructions: Activity: as tolerated Diet: heart healthy Special Instructions: Diagnosis: Sudden Coronary Artery Dissection (SCAD) Discharge/Stand Alone Forms: Work/School Release / Restrict Discharge Disposition: HOME SELF-CARE
== END 2020-08-15 12:00 | disposition home or self-care (01) | DRG 250 ==
LOC: EC 12:26 → 2SICU 13:10
PROVIDERS: ADMIT Internal Medicine; ATTEND Internal Medicine
PROC: 02C03ZZ Extirpation of Matter from Coronary Artery, One Artery, Percutaneous Approach (ICD-10-PCS; principal; 2020-08-12 12:40)
PROC: 02703ZZ Dilation of Coronary Artery, One Artery, Percutaneous Approach (ICD-10-PCS; principal; 2020-08-12 12:40)
PROC: 4A023N7 Measurement of Cardiac Sampling and Pressure, Left Heart, Percutaneous Approach (ICD-10-PCS; principal; 2020-08-12 12:40)
PROC: B2111ZZ Fluoroscopy of Multiple Coronary Arteries using Low Osmolar Contrast (ICD-10-PCS; principal; 2020-08-12 12:40)
DX: I21.19 ST elevation (STEMI) myocardial infarction involving other coronary artery of inferior wall (principal); I25.42 Coronary artery dissection; Z68.41 Body mass index [BMI] 40.0-44.9, adult; J44.9 Chronic obstructive pulmonary disease, unspecified; N18.32 Chronic kidney disease, stage 3b; I12.9 Hypertensive chronic kidney disease with stage 1 through stage 4 chronic kidney disease, or unspecified chronic kidney disease; E66.01 Morbid (severe) obesity due to excess calories; D72.829 Elevated white blood cell count, unspecified; F41.9 Anxiety disorder, unspecified; I16.0 Hypertensive urgency; Z83.3 Family history of diabetes mellitus; F17.210 Nicotine dependence, cigarettes, uncomplicated; I08.1 Rheumatic disorders of both mitral and tricuspid valves; Z88.2 Allergy status to sulfonamides; Z91.040 Latex allergy status; Z87.09 Personal history of other diseases of the respiratory system
CPT/HCPCS: 70498; 71045; 80048; 80053; 84484; 85025; 85610; 85730; 92920; 92978; 93005; 93306; 93458; 96374; 99291

== ENCOUNTER → 2020-09-17 | Outpatient (CLI) | payer BC ==
--- NOTE | 2020-09-20 14:20 | MM ---
Reason for exam: screening (asymptomatic). Baseline mammogram. History: Family history of breast cancer in mother. Took hormonal contraceptives for 2 years. Physical Findings: Nurse did not find any significant physical abnormalities on exam. MG Screening Mammo w CAD Bilateral CC and MLO view(s) were taken. There are scattered fibroglandular densities. ASSESSMENT: Negative, BI-RAD 1 RECOMMENDATION: Routine screening mammogram of both breasts in 1 year.
== END | disposition home or self-care (01) ==
LOC: RADMAMWWP 14:17
PROVIDERS: ATTEND Family Medicine
DX: Z12.31 Encounter for screening mammogram for malignant neoplasm of breast (principal)
CPT/HCPCS: 77067

== ENCOUNTER → 2023-06-15 | Outpatient (CLI) | payer BC ==
--- NOTE | 2023-06-19 13:48 | MM ---
Reason for Exam: Screening (asymptomatic). Last mammogram was performed 2 year(s) and 9 month(s) ago. Patient History: Menarche at age 13. First Full-Term at age 25. Patient used Hormonal Contraceptives for 2 years. Mother had breast cancer. Risk Values: Ness 5 year model risk: 1.8%. NCI Lifetime model risk: 17.3%. Prior Study Comparison: 09/17/2020 Bilateral Screening Mammogram, [facility]. Tissue Density: There are scattered areas of fibroglandular density. Findings: Analyzed By CAD. Right breast: There is no suspicious group of microcalcifications or new suspicious mass. Left breast: There is no suspicious group of microcalcifications or new suspicious mass. Overall Assessment: Negative, BI-RAD 1 Management: Screening Mammogram of both breasts in [address] [facility] will attempt to contact patient to return for supplemental views and ultrasound if indicated. Patient should continue monthly self-breast exams. A clinical breast exam by your physician is recommended on an annual basis. This exam should not preclude additional follow-up of suspicious palpable abnormalities. Note on Ness scores and lifetime risk: 1. A Ness score greater than 3% is considered moderate risk. If this is the case, consider specialist referral to assess eligibility for a risk reducing agent. 2. If overall lifetime risk for the development of breast cancer is 20% or higher, the patient may qualify for future screening with alternating mammogram and breast MRI. Electronically signed and approved by: Landon Landry DO
== END | disposition home or self-care (01) ==
LOC: RADMAMWWP 09:53
PROVIDERS: ATTEND Family Medicine
DX: Z12.31 Encounter for screening mammogram for malignant neoplasm of breast (principal); Z80.3 Family history of malignant neoplasm of breast
CPT/HCPCS: 77067

== ENCOUNTER → 2024-07-04 | Outpatient (CLI) | payer BC ==
--- NOTE | 2024-07-07 08:08 | MM ---
Reason for Exam: Screening (asymptomatic). Last mammogram was performed 1 year(s) and 1 month(s) ago. Patient History: Menarche at age 13. First Full-Term at age 25. Patient has history of breast feeding. Patient used Hormonal Contraceptives for 2 years. Mother had breast cancer. Risk Values: Ness 5 year model risk: 1.8%. NCI Lifetime model risk: 17.1%. Prior Study Comparison: 09/17/2020 Bilateral Screening Mammogram, [facility]. 06/15/2023 Bilateral MG screening mammo w CAD, [facility]. Tissue Density: There are scattered areas of fibroglandular density. Findings: Analyzed By CAD. Right breast: There is no suspicious group of microcalcifications or new suspicious mass. Benign-appearing calcifications right breast. Left breast: There is no suspicious group of microcalcifications or new suspicious mass. Overall Assessment: Benign, BI-RAD 2 Management: Screening Mammogram of both breasts in [address] [facility] will attempt to contact patient to return for supplemental views and ultrasound if indicated. Patient should continue monthly self-breast exams. A clinical breast exam by your physician is recommended on an annual basis. This exam should not preclude additional follow-up of suspicious palpable abnormalities. Note on Ness scores and lifetime risk: 1. A Ness score greater than 3% is considered moderate risk. If this is the case, consider specialist referral to assess eligibility for a risk reducing agent. 2. If overall lifetime risk for the development of breast cancer is 20% or higher, the patient may qualify for future screening with alternating mammogram and breast MRI. [facility], , 07/07/2024 8:04 AM. Electronically signed and approved by: Landon Landry DO
== END | disposition home or self-care (01) ==
LOC: RADMAMWWP 16:24
PROVIDERS: ATTEND Student in an Organized Health Care Education/Training Program
DX: Z12.31 Encounter for screening mammogram for malignant neoplasm of breast (principal); R92.323 Mammographic fibroglandular density, bilateral breasts; R92.1 Mammographic calcification found on diagnostic imaging of breast; Z92.0 Personal history of contraception; Z80.3 Family history of malignant neoplasm of breast
CPT/HCPCS: 77067